=== PATIENT | female | born 1980 | race Caucasian/White ===

== ENCOUNTER 2017-01-23 21:20 | Emergency (ER) | payer MEDICAID ==
[2017-01-23] MEDS ORDERED: CLINDAMYCIN 600MG/4ML VIAL 600 MG in 0.9 % SODIUM CHLORIDE 100ML 100 ML IV ONE (21:58)
[2017-01-23] MEDS ORDERED: METHYLPREDNISOLONE PF 125MG/VIAL IVP ONE (21:58)
[2017-01-23] MEDS ORDERED: KETOROLAC 30 MG/ML VIAL IVP ONE (21:58)
--- NOTE | 2017-01-23 22:03 | Emergency Department Record ---
History of Present Illness - General Chief complaint: Facial Swelling Stated complaint: RT FACE SWELLING Time Seen by Provider: 01/23/17 21:57 Source: Patient Mode of Arrival: Ambulatory Limitations: No limitations - History of Present Illness Initial Comments: 36 yo female presents to ED with a CC of right lower lip swelling after " popping a pimple" on the lip earlier today. Patient reports similar symptoms 1 month ago resulting from a facial pimple, resulted in "MRSA" requiring admission for cellulitis. Patient denies fevers, chills, or recent illness symptoms. Patient denies history of DM or health problems at her baseline, patient denies ELSA-I medication use or throat swelling/difficulty in breathing symptoms. Patient reports that Clindamycin was ineffective for treating her MRSA infection previously, however Keflex improved her symptoms. MD Complaint: Facial swelling Onset/Timin -: Days(s) Exposure: Other Symptoms: Facial swelling, Lip swelling Severity: Moderate Previous Allergy History: None - Related Data Previous Rx's Medication Instructions Recorded Cephalexin [Keflex] 500 mg PO QID #38 cap 01/23/17 Prednisone [Prednisone 20Mg] 20 mg PO BID #10 tab 01/23/17 Allergies Allergy/AdvReac Type Severity Reaction Status Date / Time No Known Drug Allergies Allergy Unverified 10/01/16 09:50 Travel Screening - Travel/Exposure Within Last 30 Days Have you traveled within the last 30 days?: No - Travel Symptoms Symptom Screening: None Review of Systems Constitutional: Denies: Chills, Fever, Malaise, Night sweats Eyes: Denies: Eye discharge, Eye pain ENT: Reports: Other (lip swelling). Denies: Congestion, Ear pain, Epistaxis Respiratory: Denies: Cough, Dyspnea Cardiovascular: Denies: Chest pain, Dyspnea on exertion Endocrine: Denies: Fatigue, Heat or cold intolerance Gastrointestinal: Denies: Abdominal pain, Nausea, Vomiting Genitourinary: Denies: Incontinence, Retention Musculoskeletal: Denies: Arthralgia, Back pain, Gout, Joint swelling Skin: Denies: Bruising Neurological: Denies: Abnormal gait, Confusion, Headache, Seizure Psychiatric: Denies: Anxiety Hematological/Lymphatic: Denies: Anemia, Blood Clots Past Medical History - SOCIAL HISTORY Smoking Status: Heavy tobacco smoker (>10/day) Alcohol Use: Rare Drug Use: None - RESPIRATORY Hx Respiratory Disorders: No - CARDIOVASCULAR Hx Cardio Disorders: No - NEURO Hx Neuro Disorders: No - GI Hx GI Disorders: No - Hx Genitourinary Disorders: No - ENDOCRINE Hx Endocrine Disorders: No - MUSCULOSKELETAL Hx Musculoskeletal Disorders: No - PSYCH Hx Psych Problems: No - HEMATOLOGY/ONCOLOGY Hx Hematology/Oncology Disorders: Yes Hx Anemia: Yes (Had hysterectomy due to bleeding) Family Medical History Any Significant Family History?: Yes Hx HTN: Father Physical Exam - General General Appearance: Alert, Oriented x3, Cooperative, Mild distress, Anxious Limitations: No limitations - Head Head exam: Atraumatic, Normocephalic, Normal inspection Head exam detail: negative: Abrasion, Contusion, Watson's sign, General tenderness, Hematoma, Laceration - Eye Eye exam: Normal appearance. negative: Conjunctival injection, Periorbital swelling, Periorbital tenderness, Scleral icterus - ENT Ear exam: negative: Auricular hematoma, Auricular trauma Nasal Exam: negative: Active bleeding, Discharge, Dried blood, Foreign body Mouth exam: Other (induration and STS to the right upper lip). negative: Drooling, Laceration, Muffled voice, Tongue elevation Teeth exam: Dental caries - Neck Neck exam: Normal inspection. negative: Meningismus, Tenderness - Respiratory Respiratory exam: Normal lung sounds bilaterally. negative: Rales, Respiratory distress, Rhonchi, Stridor - Cardiovascular Cardiovascular Exam: Regular rate, Normal rhythm, Normal heart sounds - GI/Abdominal GI/Abdominal exam: Soft. negative: Rebound, Rigid, Tenderness - Rectal Rectal exam: Deferred - exam: Deferred - Extremities Extremities exam: Normal inspection. negative: Calf tenderness, Pedal edema, Tenderness - Back Back exam: Denies: CVA tenderness (R), CVA tenderness (L) - Neurological Neurological exam: Alert, Normal gait, Oriented X3 - Psychiatric Psychiatric exam: Normal affect, Normal mood - Skin Skin exam: Normal color. negative: Abrasion Type of lesion: negative: abrasion Course Vital Signs 01/23/17 21:35 Temperature 97.5 F L Pulse Rate [ 77 Pulse Ox Probe] Respiratory 24 Rate Blood Pressure 120/81 [Left Arm] Pulse Ox 100 - Reevaluation(s) Reevaluation #1: 01/23/17 22:41 Labs reviewed and are grossly unremarkable for an acute process. Reevaluation #2: 01/23/17 22:52 Antibiotics have completed infusion, and the patient appears stable for discharge home with instructions to return to ED in 12-24 hours for re- examination of her facial swelling, sooner if symptoms worsen. Medical Decision Making - Lab Data Result diagrams: 01/23/17 22:10 01/23/17 22:10 Disposition Disposition: Discharge Clinical Impression: Cellulitis of lip Disposition: Home, Self-Care Condition: (2) Stable Instructions: Cellulitis (ED) Additional Instructions: Return to ED if your symptoms worsen or if you have any concerns. Keflex as directed. Return to ED in 12-24 hours for reassessment. Prescriptions: Cephalexin [Keflex] 500 mg PO QID #38 cap Prednisone [Prednisone 20Mg] 20 mg PO BID #10 tab Forms: Patient Portal Access Time of Disposition: 22:55 Quality - Quality Measures Quality Measures: N/A - Blood Pressure Screening Blood Pressure Classification: Normal BP Reading Systolic Measurement: 112 Diastolic Measurement: 65 Screening for High Blood Pressure: < Normal BP, F/U Not Required > [G8783] Normal BP Follow-up Interventions: No follow-up required
[2017-01-23 22:28] LABS: BASO % 0.6 % (0-6); EOS % 7.2 % (0-6); GRAN % 59.5 % (47-80); LYMPH % 25.3 % (16-45); MEAN CELL VOLUME 82.6 fl (81-97); MEAN CORPUSCULAR HEMOGLOBIN 27.5 pg (27-33); MEAN CORPUSCULAR HGB CONC 33.3 g/dl (32-36); MEAN PLATELET VOLUME 10.5 fl (7.4-10.4); MONO % 7.4 % (0-9); PLATELET COUNT 253 K/uL (130-400); RED BLOOD COUNT 4.72 M/uL (3.80-5.40); RED CELL DISTRIBUTION WIDTH 15.2 % (11.5-14.5)
[2017-01-23 22:38] LABS: ALB/GLOB RATIO 1.3 (1.1-1.8); ALBUMIN 4.5 gm/dL (3.5-5.0); ALKALINE PHOSPHATASE 81 U/L (38-126); ALT/SGPT 33 U/L (9-52); ANION GAP 9.7 (7-16); AST/SGOT 32 U/L (14-36); BILIRUBIN,TOTAL 0.66 mg/dL (0.2-1.3); BLOOD UREA NITROGEN 12 mg/dL (7-17); CARBON DIOXIDE 24.3 mmol/L (22-30); CREATININE 0.9 mg/dL (0.52-1.04); EST GLOMERULAR FILTRATION RATE > 60 ml/min; GLUCOSE,RANDOM 79 mg/dL (70-110); TOTAL PROTEIN 8.1 gm/dL (6.3-8.2)
[2017-01-23] MEDS ORDERED: CEPHALEXIN 500 MG CAPSULE PO STA (22:54)
== END 2017-01-23 23:27 | disposition home or self-care (01) ==
LOC: ER 21:20
DX: K13.0 Diseases of lips (principal)
CPT/HCPCS: 99284 ×2; 96365; 96375; 85025; 80053; J1885; J2930

== ENCOUNTER 2017-01-24 13:18 | Emergency (ER) | payer MEDICAID ==
[2017-01-24] MEDS ORDERED: CLINDAMYCIN 600MG/4ML VIAL 600 MG in 0.9 % SODIUM CHLORIDE 100ML 100 ML IV ONE (14:18)
[2017-01-24] MEDS ORDERED: HYDROCODONE/APAP 5/325MG TABLET PO ONE (14:19)
[2017-01-24] MEDS ORDERED: HYDROMORPHONE HCL 1MG/ML **SYRINGE IVP ONE (15:18)
[2017-01-24] MEDS ORDERED: PROMETHAZINE HCL 25 MG/ML VIAL IVP ONE (15:18)
--- NOTE | 2017-01-24 15:23 | Emergency Department Record ---
History of Present Illness - General Chief Complaint: Recheck - Other Stated Complaint: LIP SWELLING Time Seen by Provider: 01/24/17 14:19 Source: Patient Mode of arrival: Ambulatory Limitations: No limitations - History of Present Illness Initial Comments: pt here for recheck of infection of her lip. pt has a hx of mrsa and states she squeezed a bump and this is the same.pt had a dose of iv clindamycin and is on keflex since last night. her SO informs me that the toradol did nothing for her pain. pt states she is no better. Complaint: Needs IV antibiotics Onset/Timin -: Days(s) Initial Visit For: Cellulitis Returns Today for: Cellulitis follow-up Symptoms Since Prior Visit: Worsening swelling Associated Symptoms: Other Treatments Prior to Arrival: Given antibiotics on initial visit - Related Data Previous Rx's Medication Instructions Recorded Cephalexin [Keflex] 500 mg PO QID #38 cap 01/23/17 Prednisone [Prednisone 20Mg] 20 mg PO BID #10 tab 01/23/17 Hydrocodone/Acetaminophen [[place] 1 each PO Q6HR #7 tablet 01/24/17 5-325 Tablet] Allergies Allergy/AdvReac Type Severity Reaction Status Date / Time No Known Drug Allergies Allergy Verified 01/24/17 13:31 Travel Screening - Travel/Exposure Within Last 30 Days Have you traveled within the last 30 days?: No - Travel/Exposure Within Last Year Have you traveled outside the [place] in the last year?: No - Additonal Travel Details Have you been exposed to anyone with a communicable illness?: No - Travel Symptoms Symptom Screening: None Review of Systems Reviewed: No additional complaints except as noted below Constitutional: Reports: As per HPI. Denies: Chills, Fever, Malaise, Night sweats, Weakness, Weight change Eyes: Reports: As per HPI. Denies: Eye discharge, Eye pain, Photophobia, Vision change ENT: Reports: As per HPI. Denies: Congestion, Dental pain, Ear pain, Epistaxis , Hearing loss, Throat pain Respiratory: Reports: As per HPI. Denies: Cough, Dyspnea, Hemoptysis, Stridor, Wheezes Cardiovascular: Reports: As per HPI. Denies: Arrhythmia, Chest pain, Dyspnea on exertion, Edema, Murmurs, Orthopnea, Palpitations, Paroxysmal nocturnal dyspnea, Rheumatic Fever, Syncope Endocrine: Reports: As per HPI. Denies: Fatigue, Heat or cold intolerance, Polydipsia, Polyuria Gastrointestinal: Reports: As per HPI. Denies: Abdominal pain, Constipation, Diarrhea, Hematemesis, Hematochezia, Melena, Nausea, Vomiting Genitourinary: Reports: As per HPI. Denies: Abnormal menses, Discharge, Dyspareunia, Dysuria, Frequency, Hematuria, Incontinence, Retention, Urgency Musculoskeletal: Reports: As per HPI. Denies: Arthralgia, Back pain, Gout, Joint swelling, Myalgia, Neck pain Skin: Reports: As per HPI. Denies: Bruising, Change in color, Change in hair/ nails, Lesions, Pruritus, Rash Neurological: Reports: As per HPI. Denies: Abnormal gait, Confusion, Headache, Numbness, Paresthesias, Seizure, Tingling, Tremors, Vertigo, Weakness Psychiatric: Reports: As per HPI. Denies: Anxiety, Auditory hallucinations, Depression, Homicidal thoughts, Suicidal thoughts, Visual hallucinations Hematological/Lymphatic: Reports: As per HPI. Denies: Anemia, Blood Clots, Easy bleeding, Easy bruising, Swollen glands Past Medical History - SOCIAL HISTORY Smoking Status: Heavy tobacco smoker (>10/day) Alcohol Use: Rare Drug Use: None - RESPIRATORY Hx Respiratory Disorders: No - CARDIOVASCULAR Hx Cardio Disorders: No - NEURO Hx Neuro Disorders: No - GI Hx GI Disorders: No - Hx Genitourinary Disorders: No - ENDOCRINE Hx Endocrine Disorders: No - MUSCULOSKELETAL Hx Musculoskeletal Disorders: No - PSYCH Hx Psych Problems: No - HEMATOLOGY/ONCOLOGY Hx Hematology/Oncology Disorders: Yes Hx Anemia: Yes (Had hysterectomy due to bleeding) Family Medical History Any Significant Family History?: Yes Hx HTN: Father Physical Exam - General General Appearance: Alert, Oriented x3, Cooperative, Mild distress - Head Head exam: Normal inspection - Eye Eye exam: Normal appearance, PERRL, EOMI Pupils: Normal accommodation - ENT ENT exam: Normal exam, Mucous membranes moist, Normal external ear exam, Normal orophraynx Ear exam: Normal external inspection. negative: External canal tenderness Nasal Exam: Normal inspection. negative: Discharge, Sinus tenderness Mouth exam: Normal external inspection, Tongue normal, Other (mild swelling pof r upper lip w mild erythema) Teeth exam: Normal inspection. negative: Dental caries Throat exam: Normal inspection. negative: Tonsillar erythema, Tonsillar exudate - Neck Neck exam: Normal inspection, Full ROM. negative: Tenderness - Respiratory Respiratory exam: Normal lung sounds bilaterally. negative: Respiratory distress - Cardiovascular Cardiovascular Exam: Regular rate, Normal rhythm, Normal heart sounds - GI/Abdominal GI/Abdominal exam: Soft, Normal bowel sounds. negative: Tenderness - Rectal Rectal exam: Deferred - exam: Deferred - Extremities Extremities exam: Normal inspection, Full ROM, Normal capillary refill. negative: Tenderness - Back Back exam: Reports: Normal inspection, Full ROM. Denies: Muscle spasm, Rash noted, Tenderness - Neurological Neurological exam: Alert, CN II-XII intact, Normal gait, Oriented X3 - Psychiatric Psychiatric exam: Normal affect, Normal mood - Skin Skin exam: Dry, Intact, Normal color, Warm Course Vital Signs 01/24/17 13:32 Temperature 97.5 F L Pulse Rate 77 Respiratory 20 Rate Blood Pressure 119/65 Pulse Ox 99 - Reevaluation(s) Reevaluation #1: 01/24/17 15:25 pt has erythema and mild swelling of lip which appears to be tender. i did consider the possibility of herpes simplex outbreak however with the pts reported hx of mrsa and stating this was just like it and the fact that there are no vesicles at this time this most likely is cellulitis Disposition Disposition: Discharge Clinical Impression: Cellulitis of lip Disposition: Home, Self-Care Condition: (1) Good Instructions: Cellulitis (ED) Additional Instructions: recheck in 12-24hrs. continue keflex. sleep elevated Prescriptions: Hydrocodone/Acetaminophen [Morrow 5-325 Tablet] 1 each PO Q6HR #7 tablet Forms: Patient Portal Access Quality - Quality Measures Quality Measures: N/A - Blood Pressure Screening Blood Pressure Classification: Normal BP Reading Systolic Measurement: 119 Diastolic Measurement: 65 Screening for High Blood Pressure: < Normal BP, F/U Not Required > [G8783] Normal BP Follow-up Interventions: No follow-up required
== END 2017-01-24 16:10 | disposition home or self-care (01) ==
LOC: ER 13:18
DX: K13.0 Diseases of lips (principal); F17.210 Nicotine dependence, cigarettes, uncomplicated; Z86.14 Personal history of Methicillin resistant Staphylococcus aureus infection
CPT/HCPCS: 99282 ×2; 96365; 96375; J1170; J2550

== ENCOUNTER 2017-01-25 11:55 | Inpatient (IN) | payer MEDICAID ==
--- NOTE | 2017-01-25 12:12 | Emergency Department Record ---
History of Present Illness - General Chief Complaint: Recheck - Other Stated Complaint: SWOLLEN LIP Time Seen by Provider: 01/25/17 12:02 Source: Patient, Family Mode of arrival: Ambulatory Limitations: No limitations - History of Present Illness Initial Comments: 36 yo female presents with continued lip pain and swelling. the symptoms started as a pimple like area that she tried to pop. The lower lip began to swell at that time. She was seen in the ER on 01/23 and 01/24. She was treated with IV antibiotic and sent home on oral antibiotics. She reports prior MRSA with facial infection in the past. The swelling the the right lip and face have increased. PCP Dr Richards. Complaint: Wound re-check Onset/Timin -: Days(s) Initial Visit For: Other Returns Today for: Needs IV antibiotics Symptoms Since Prior Visit: Worsening pain, Worsening swelling Associated Symptoms: None Treatments Prior to Arrival: Given antibiotics on initial visit, Given pain medications on initial visit - Related Data Home Medications Medication Instructions Recorded Confirmed Last Taken Hydroxyzine Pamoate [Vistaril] 25 mg PO ASDIR 01/25/17 01/25/17 Unknown Previous Rx's Medication Instructions Recorded Cephalexin [Keflex] 500 mg PO QID #38 cap 01/23/17 Prednisone [Prednisone 20Mg] 20 mg PO BID #10 tab 01/23/17 Hydrocodone/Acetaminophen [[place] 1 each PO Q6HR #7 tablet 01/24/17 5-325 Tablet] Allergies Allergy/AdvReac Type Severity Reaction Status Date / Time No Known Drug Allergies Allergy Verified 01/24/17 13:31 Travel Screening - Travel/Exposure Within Last 30 Days Have you traveled within the last 30 days?: No Past Medical History - SOCIAL HISTORY Smoking Status: Heavy tobacco smoker (>10/day) - RESPIRATORY Hx Respiratory Disorders: No - CARDIOVASCULAR Hx Cardio Disorders: No - NEURO Hx Neuro Disorders: No - GI Hx GI Disorders: No - Hx Genitourinary Disorders: No - ENDOCRINE Hx Endocrine Disorders: No - MUSCULOSKELETAL Hx Musculoskeletal Disorders: No - PSYCH Hx Psych Problems: No - HEMATOLOGY/ONCOLOGY Hx Hematology/Oncology Disorders: Yes Hx Anemia: Yes (Had hysterectomy due to bleeding) Family Medical History Any Significant Family History?: Yes Hx HTN: Father Course Vital Signs 01/25/17 11:59 Temperature 98.1 F Pulse Rate 69 Respiratory 20 Rate Blood Pressure 126/78 Pulse Ox 100 - Reevaluation(s) Reevaluation #1: No acute changes on the CBC or CMP. CRP is 0.6. 01/25/17 13:02 Reevaluation #2: The CT scan of the face was negative for abscess, gas, or bone abnormalities. She has soft tissue swelling CW cellulitis. I SW Dr Richards. She will be admitted for failed outpatient treatment of cellulitis of the face. 01/25/17 13:20 Medical Decision Making - Lab Data Result diagrams: 01/25/17 12:35 01/25/17 12:35 Disposition Disposition: Admit Clinical Impression: Cellulitis of lip Disposition: Still a Patient at [facility] Decision to Admit: Admit from ER Decision to Admit Date: 01/25/17 Decision to Admit Time: 13:21 Condition: (1) Good Forms: Patient Portal Access Time of Disposition: 13:21 Quality - Quality Measures Quality Measures: N/A - Blood Pressure Screening View Details: Yes Blood Pressure Classification: Pre-Hypertensive BP Reading Systolic Measurement: 126 Diastolic Measurement: 78 Screening for High Blood Pressure: < Pre-Hypertensive BP, F/U Documented > [ G8950] Pre-Hypertensive Follow-up Interventions: Referral to alternative/primary care provider.
[2017-01-25] MEDS ORDERED: HYDROMORPHONE HCL 1MG/ML **SYRINGE IVP ONE ×2 (12:34→14:24)
[2017-01-25 12:43] LABS: BASO % 0.3 % (0-6); EOS % 2.1 % (0-6); GRAN % 61.1 % (47-80); HEMATOCRIT 37.7 % (35.0-47.0); HEMOGLOBIN 12.4 gm/dl (11.6-16.0); LYMPH % 27.9 % (16-45); MEAN CELL VOLUME 84.3 fl (81-97); MEAN CORPUSCULAR HEMOGLOBIN 27.7 pg (27-33); MEAN CORPUSCULAR HGB CONC 32.9 g/dl (32-36); MEAN PLATELET VOLUME 10.1 fl (7.4-10.4); MONO % 8.6 % (0-9); PLATELET COUNT 225 K/uL (130-400); RED BLOOD COUNT 4.47 M/uL (3.80-5.40); RED CELL DISTRIBUTION WIDTH 15.3 % (11.5-14.5); WHITE BLOOD COUNT W/O DIFF 9.9 K/uL (4.2-12.2)
[2017-01-25 12:58] LABS: ANION GAP 5.4 (7-16); BLOOD UREA NITROGEN 12 mg/dL (7-17); C-REACTIVE PROTEIN 0.6 mg/dL (0.0-0.9); CARBON DIOXIDE 26.6 mmol/L (22-30); CREATININE 0.8 mg/dL (0.52-1.04); EST GLOMERULAR FILTRATION RATE > 60 ml/min; GLUCOSE,RANDOM 69 mg/dL (70-110)
[2017-01-25] MEDS ORDERED: ACETAMINOPHEN 500 MG TABLET PO PRN (14:58)
[2017-01-25] MEDS: CLINDAMYCIN 600MG/50ML PREMIX 600 MG/50 ML BAG IVPB SCH ×2 (15:24→21:34)
[2017-01-25] MEDS: IBUPROFEN 600 MG TABLET PO PRN (16:04)
--- NOTE | 2017-01-25 16:20 | History & Physical ---
History of Present Illness - Date of Service Date of Service for History & Physical: 01/25/17 - History of Present Illness Admitting Diagnosis: facial cellulitis History of Present Illness: 36 yo female presents with continued lip pain and swelling of face. The symptoms started as a pimple on Wednesday. Within 2 hours the area was red and inflamed. The lower lip began to swell at that time. She was seen in the ER on 01/23 and 01/24. She was treated with IV antibiotic (IV Clindamycin) and sent home on oral antibiotics (Clindamycin and Keflex). 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 The swelling the the right lip and face have increased since she started her outpatient antibiotics. She was admitted after CT of face did not show an abscess. PCP Dr Richards. Travel Screening - Travel/Exposure Within Last 30 Days Have you traveled within the last 30 days?: No - Travel/Exposure Within Last Year Have you traveled outside the [place] in the last year?: No - Additonal Travel Details Have you been exposed to anyone with a communicable illness?: No - Travel Symptoms Symptom Screening: Headache Review of Systems Reviewed: No additional complaints except as noted below Constitutional: Reports: As per HPI. Denies: Chills, Fever, Malaise, Night sweats, Weakness, Weight change Eyes: Reports: As per HPI. Denies: Eye discharge, Eye pain, Photophobia, Vision change ENT: Reports: As per HPI. Denies: Congestion, Dental pain, Ear pain, Epistaxis , Hearing loss, Throat pain Respiratory: Reports: As per HPI. Denies: Cough, Dyspnea, Hemoptysis, Stridor, Wheezes Cardiovascular: Reports: As per HPI. Denies: Arrhythmia, Chest pain, Dyspnea on exertion, Edema, Murmurs, Orthopnea, Palpitations, Paroxysmal nocturnal dyspnea, Rheumatic Fever, Syncope Endocrine: Reports: As per HPI. Denies: Fatigue, Heat or cold intolerance, Polydipsia, Polyuria Gastrointestinal: Reports: As per HPI. Denies: Abdominal pain, Constipation, Diarrhea, Hematemesis, Hematochezia, Melena, Nausea, Vomiting Genitourinary: Reports: As per HPI. Denies: Abnormal menses, Discharge, Dyspareunia, Dysuria, Frequency, Hematuria, Incontinence, Retention, Urgency Musculoskeletal: Reports: As per HPI. Denies: Arthralgia, Back pain, Gout, Joint swelling, Myalgia, Neck pain Skin: Reports: As per HPI, Change in color, Lesions (above right lip, small ulceration with puffed lip). Denies: Bruising, Change in hair/nails, Pruritus, Rash Neurological: Reports: As per HPI. Denies: Abnormal gait, Confusion, Headache, Numbness, Paresthesias, Seizure, Tingling, Tremors, Vertigo, Weakness Psychiatric: Reports: As per HPI. Denies: Anxiety, Auditory hallucinations, Depression, Homicidal thoughts, Suicidal thoughts, Visual hallucinations Hematological/Lymphatic: Reports: As per HPI. Denies: Anemia, Blood Clots, Easy bleeding, Easy bruising, Swollen glands Past Medical History - SOCIAL HISTORY Smoking Status: Heavy tobacco smoker (>10/day) Alcohol Use: Occasional - RESPIRATORY Hx Respiratory Disorders: No - CARDIOVASCULAR Hx Cardio Disorders: No - NEURO Hx Neuro Disorders: No - GI Hx GI Disorders: No - Hx Genitourinary Disorders: No - ENDOCRINE Hx Endocrine Disorders: No - MUSCULOSKELETAL Hx Musculoskeletal Disorders: No - PSYCH Hx Psych Problems: No - HEMATOLOGY/ONCOLOGY Hx Hematology/Oncology Disorders: Yes Hx Anemia: Yes (Had hysterectomy due to bleeding) Family Medical History Any Significant Family History?: Yes Hx HTN: Father H&P Meds/Allergies - Allergies Allergies: Allergies Allergy/AdvReac Type Severity Reaction Status Date / Time No Known Drug Allergies Allergy Verified 01/24/17 13:31 - Home Medications Home Medications Medication Instructions Recorded Confirmed Last Taken Hydroxyzine Pamoate [Vistaril] 25 mg PO ASDIR 01/25/17 01/25/17 Unknown Previous Rx's Medication Instructions Recorded Cephalexin [Keflex] 500 mg PO QID #38 cap 01/23/17 Prednisone [Prednisone 20Mg] 20 mg PO BID #10 tab 01/23/17 Hydrocodone/Acetaminophen [[place] 1 each PO Q6HR #7 tablet 01/24/17 5-325 Tablet] - Active Medications Active Medications: Current Medications Acetaminophen (Tylenol 500mg Tab) 1,000 mg PO Q6H PRN PRN Reason: PAIN/TEMP Enoxaparin Sodium (Lovenox) 40 mg SC DAILY [facility] Hydromorphone HCl (Dilaudid) 0.5 mg IVP Q4HR PRN PRN Reason: Pain - General Clindamycin Phosphate (Cleocin 600 [id number]) 600 mg in 50 mls @ 100 mls/ hr IVPB Q8HR [facility] Last Admin: 01/25/17 15:24 Dose: 100 mls/hr Ibuprofen (Motrin 600mg) 600 mg PO Q8H PRN PRN Reason: Pain - General Last Admin: 01/25/17 16:04 Dose: 600 mg Pantoprazole Sodium (Protonix) 40 mg PO DAILYAC [facility] Sertraline HCl (Zoloft) 50 mg PO DAILY [facility] Physical Exam - Vital Signs Vital Signs: Vital Signs - Last 24 Hrs Temp Pulse Resp BP Pulse Ox 01/25/17 15:43 62 18 01/25/17 14:58 97.8 F 62 18 115/72 99 - General General Appearance: Alert, Oriented x3, Cooperative, No acute distress Limitations: No limitations - Head Head exam: Normal inspection Head exam detail: negative: Abrasion, Contusion - Eye Eye exam: Normal appearance, PERRL Pupils: Normal accommodation - ENT ENT exam: Normal exam, Mucous membranes moist, Normal external ear exam, Normal orophraynx, TM's normal bilaterally Ear exam: Normal external inspection. negative: External canal tenderness Nasal Exam: Normal inspection. negative: Discharge, Sinus tenderness Mouth exam: Normal external inspection, Tongue normal Teeth exam: Normal inspection. negative: Dental caries Throat exam: Normal inspection. negative: Tonsillar erythema, Tonsillar exudate - Neck Neck exam: Normal inspection, Full ROM. negative: Tenderness - Respiratory Respiratory exam: Normal lung sounds bilaterally. negative: Respiratory distress - Cardiovascular Cardiovascular Exam: Regular rate, Normal rhythm, Normal heart sounds - GI/Abdominal GI/Abdominal exam: Soft, Normal bowel sounds. negative: Tenderness - Rectal Rectal exam: Deferred - exam: Deferred - Extremities Extremities exam: Normal inspection, Full ROM, Normal capillary refill. negative: Tenderness - Back Back exam: Reports: Normal inspection, Full ROM. Denies: Muscle spasm, Rash noted, Tenderness - Neurological Neurological exam: Alert, Normal gait, Oriented X3, Reflexes normal - Psychiatric Psychiatric exam: Normal affect, Normal mood - Skin Skin exam: Dry, Erythema (borders drawn over area of eryathema), Intact, Normal color, Rash, Warm Type of lesion: Laceration, Rash Distribution of rash: Face Description of rash: Blisters, Erythematous, Swelling, Tenderness Results - Labs Result Diagrams: 01/25/17 12:35 01/25/17 12:35 VTE H&P Assessment - Risk for VTE Risk for VTE: Yes Risk Level: Moderate Risk Assessment Date: 01/25/17 Risk Assessment Time: 23:17 VTE Orders Placed or Will Be Placed: Yes Plan - Inpatient Certification Inpatient Certification: Admit to inpatient care: Based on my medical assessment, after consideration of patient's risk factors (age, co-morbidities and patient presenting symptoms and acuity), I expect that this patient will remain in the hospital greater than or equal to two midnights and that the services needed warrant inpatient care because: Patient Risk Factors: [] Estimated length of stay: [] The patient may reasonably be expected to be discharged or transferred to a hospital within 96 hours after admission to [facility]. Services needed: [] Post hospital care (if known): [] I certify that my determination is in accordance with my understanding of Medicare requirements for reasonable and necessary inpatient services. - Detailed Diagnosis and Plan (1) Cellulitis of lip Current Visit: Yes Status: Acute Base Code: K13.0 - DISEASES OF LIPS Comment: 01/25- will trial one more day of IV clindamycin since failed outpatient oral treatment. Requested nurse to get records from [facility] for previous cultures and sensitives to MRSA. If no improvement tomorrow, will need to intiate vancomycin for broader MRSA coverage. (2) Cellulitis, face Current Visit: Yes Status: Acute Base Code: L03.211 - CELLULITIS OF FACE Comment: 01/25 - initated iv clindamycin as noted above. For pain, will add norco 10mg. Lucio borders on face of current site of infection. Good range of motion to extra occular muscles (3) DVT prophylaxis Current Visit: Yes Status: Acute Base Code: [id number] - Comment: 01/25 - lovenox 40mg daily (4) Full code status Current Visit: Yes Status: Acute Base Code: Z78.9 - OTHER SPECIFIED HEALTH STATUS Comment: 01/25- full code
[2017-01-25] MEDS: HYDROCODONE/APAP 5/325MG TABLET PO PRN ×2 (16:45→17:16)
[2017-01-25] MEDS: HYDROMORPHONE HCL 1 MG/ML CPJ IVP PRN (19:22)
[2017-01-25] MEDS: ZOLPIDEM TARTRATE 5 MG TABLET PO SCH (21:33)
[2017-01-25] MEDS: HYDROXYZINE PAMOATE 25 MG CAPSULE PO PRN (21:33)
[2017-01-25] MEDS: SERTRALINE HCL 50 MG TABLET PO SCH (21:34)
[2017-01-25] MEDS: PANTOPRAZOLE SODIUM 40 MG TABLET PO SCH (21:52)
[2017-01-26] MEDS: HYDROCODONE/APAP 10/325 TABLET PO PRN ×4 (03:36→20:47)
[2017-01-26] MEDS: CLINDAMYCIN 600MG/50ML PREMIX 600 MG/50 ML BAG IVPB SCH (05:49)
[2017-01-26] MEDS: HYDROMORPHONE HCL 1 MG/ML CPJ IVP PRN ×4 (06:58→19:49)
--- NOTE | 2017-01-26 07:40 | CT SCAN REPORT ---
EXAM: MAXILLOFACIAL CT WITH IV CONTRAST HISTORY: RIGHT PERIORBITAL AND MANDIBULAR SWELLING WITH PAIN. THREE DAYS INTERMITTENT EPISODES OF METHICILLIN RESISTANT STREPTOCOCCUS AUREUS OF THE LIP ONE MONTH AGO WITH ANTIBIOTIC THERAPY AND SOME IMPROVEMENT. TECHNIQUE: Contiguous axial images from the level of the mid lateral ventricles to the C6 level were obtained after the uneventful intravenous administration of 95 ml of Omnipaque 300. Sagittal and coronal two dimensional reformatted images were obtained for better anatomic delineation. Comparison: None. FINDINGS: There is thickening and contrast enhancement of the upper right lip extending from the midline to the right measuring up to 1.3 cm in AP dimension x 4.2 cm in mediolateral dimension. The finding measures 1.1 cm in craniocaudal dimension. No discreet fluid collection or soft tissue gas. The adjacent mandible is preserved without osteolysis or periosteal reaction. No periodontal disease. Minimal mucosal thickening right maxillary sinus. The remaining paranasal sinuses are well aerated. The visualized nasopharynx, oropharynx, and hypopharynx are unremarkable. The laryngeal structures are symmetric. Vascular structures are patent. No fracture. IMPRESSION: EXTENSIVE SOFT TISSUE SWELLING AND ENHANCEMENT OF THE RIGHT UPPER LIP EXTENDING TO THE MIDLINE CONSISTENT WITH CELLULITIS. NO DISCREET ABSCESS, SOFT TISSUE GAS , OR EVIDENCE OF OSTEOMYELITIS. JOB NUMBER: [id number] [facility]
[2017-01-26] MEDS: VANCOMYCIN HCL 750 MG in 0.9 % SODIUM CHLORIDE 250ML 250 ML IVPB SCH ×2 (09:14→18:32)
--- NOTE | 2017-01-26 09:47 | Physician Progress Note ---
Subjective - Date Date of Physician Progress Note: 01/26/17 - Subjective Subjective Comment: pt uncomfortable due to pain increased right upper lip swelling erythema within drawn lines patient tolerating po intake, however painful. afebrile. no diaphoresis. Objective - Vital Signs Vital Signs: Vital Signs - Last 24 Hrs Temp Pulse Resp BP Pulse Ox 01/26/17 03:42 97.9 F 60 16 105/68 96 01/25/17 21:00 18 01/25/17 15:43 62 18 01/25/17 14:58 97.8 F 62 18 115/72 99 - General General Appearance: Alert, Oriented x3, Cooperative, No acute distress Limitations: No limitations - Head Head exam: Normal inspection Head exam detail: negative: Abrasion, Contusion - Eye Eye exam: Normal appearance, PERRL Pupils: Normal accommodation - ENT ENT exam: Normal exam, Mucous membranes moist, Normal external ear exam, Normal orophraynx, TM's normal bilaterally Ear exam: Normal external inspection. negative: External canal tenderness Nasal Exam: Normal inspection. negative: Discharge, Sinus tenderness Mouth exam: Normal external inspection, Tongue normal Teeth exam: Normal inspection. negative: Dental caries Throat exam: Normal inspection. negative: Tonsillar erythema, Tonsillar exudate - Neck Neck exam: Normal inspection, Full ROM. negative: Tenderness - Respiratory Respiratory exam: Normal lung sounds bilaterally. negative: Respiratory distress - Cardiovascular Cardiovascular Exam: Regular rate, Normal rhythm, Normal heart sounds - GI/Abdominal GI/Abdominal exam: Soft, Normal bowel sounds. negative: Tenderness - Rectal Rectal exam: Deferred - exam: Deferred - Extremities Extremities exam: Normal inspection, Full ROM, Normal capillary refill. negative: Tenderness - Back Back exam: Reports: Normal inspection, Full ROM. Denies: Muscle spasm, Rash noted, Tenderness - Neurological Neurological exam: Alert, Normal gait, Oriented X3, Reflexes normal - Psychiatric Psychiatric exam: Normal affect, Normal mood - Skin Skin exam: Dry, Erythema (borders drawn over area of erythema), Intact, Rash, Warm Type of lesion: Laceration, Rash Distribution of rash: Face Description of rash: Blisters, Erythematous, Swelling, Tenderness Assessment and Plan - Assessment and Plan (1) Cellulitis, face Current Visit: Yes Status: Acute Base Code: L03.211 - CELLULITIS OF FACE Comment: 01/26 - dc clindamycin and start vanco. obtain records from previous cellulitis stay at [facility]. For pain, will add norco 10mg q6 and 0.5 IV Dilaudid q 4 prn. Tylenol or motrin as needed. borders on face to outline current site of infection. No spreading. CT of face: negative for abscess. WBC normal. Extra occular muscles normal. Tolerating PO intake. Will initiate 40 mg of IV Solu-medrol BID and Benadryl for swelling. (2) DVT prophylaxis Current Visit: Yes Status: Acute Base Code: [id number] - Comment: 01/26 - lovenox 40mg daily (3) Full code status Current Visit: Yes Status: Acute Base Code: Z78.9 - OTHER SPECIFIED HEALTH STATUS Comment: 01/26- full code Results - Labs Result Diagrams: 01/25/17 12:35 01/25/17 12:35 DVT/PE Assessment - Risk for VTE Risk for VTE: No Risk Level: Moderate Risk Assessment Date: 01/25/17 Risk Assessment Time: 23:17 VTE Orders Placed or Will Be Placed: Yes - Active Medicaitons Current Medications: Current Medications Acetaminophen (Tylenol 500mg Tab) 1,000 mg PO Q6H PRN PRN Reason: PAIN/TEMP Hydrocodone Bitart/Acetaminophen ([place]osalie 10mg/325mg) 1 each PO Q6H PRN PRN Reason: cellulutis pain Last Admin: 01/26/17 08:37 Dose: 1 each Diphenhydramine HCl (Benadryl Iv) 25 mg IVP Q6H PRN PRN Reason: Allergy Symptoms Enoxaparin Sodium (Lovenox) 40 mg SC DAILY [facility] Enoxaparin Sodium (Lovenox) 40 mg SC DAILY [facility] Hydromorphone HCl (Dilaudid) 0.5 mg IVP Q4HR PRN PRN Reason: Pain - General Last Admin: 01/26/17 06:58 Dose: 0.5 mg Hydroxyzine Pamoate (Vistaril) 25 mg PO TID PRN PRN Reason: ANXIETY Last Admin: 01/25/17 21:33 Dose: 25 mg Vancomycin HCl 750 mg/ Sodium (Chloride) 250 mls @ 250 mls/hr IVPB Q8H [facility] Last Admin: 01/26/17 09:14 Dose: 250 mls/hr Ibuprofen (Motrin 600mg) 600 mg PO Q8H PRN PRN Reason: Pain - General Last Admin: 01/25/17 16:04 Dose: 600 mg Methylprednisolone Sodium Succinate (Solu-Medrol) 40 mg IVP BID [facility] Stop: 01/31/17 10:01 Pantoprazole Sodium (Protonix) 40 mg PO QHS [facility] Last Admin: 01/25/17 21:52 Dose: 40 mg Sertraline HCl (Zoloft) 50 mg PO QHS [facility] Last Admin: 01/25/17 21:34 Dose: 50 mg Zolpidem Tartrate (Ambien) 5 mg PO QHS [facility] Last Admin: 01/25/17 21:33 Dose: 5 mg AMI Plan - Labs Result Diagrams: 01/25/17 12:35 01/25/17 12:35
[2017-01-26] MEDS ORDERED: ENOXAPARIN 40 MG/0.4 ML SYR SC SCH (10:00)
[2017-01-26] MEDS: METHYLPREDNISOLONE SOD 40MG/VIAL IVP SCH ×2 (10:00→21:06)
[2017-01-26] MEDS: ENOXAPARIN 40 MG/0.4 ML SYR SC SCH (10:01)
[2017-01-26] MEDS: IBUPROFEN 600 MG TABLET PO PRN ×2 (10:01→18:32)
[2017-01-26] MEDS: DIPHENHYDRAMINE HCL IV 50 MG/ML VIAL IVP PRN ×2 (13:02→18:42)
[2017-01-26] MEDS ORDERED: NICOTINE14 MG/24 HOUR PATCH TD SCH (18:30)
[2017-01-26] MEDS: NICOTINE 21 MG/24 HOUR PATCH TD SCH (18:32)
[2017-01-26] MEDS: ZOLPIDEM TARTRATE 5 MG TABLET PO SCH (21:06)
[2017-01-26] MEDS: PANTOPRAZOLE SODIUM 40 MG TABLET PO SCH (21:06)
[2017-01-26] MEDS: SERTRALINE HCL 50 MG TABLET PO SCH (21:06)
[2017-01-26] MEDS: DOCUSATE SODIUM 100 MG CAPSULE PO PRN (21:28)
[2017-01-27] MEDS: VANCOMYCIN HCL 750 MG in 0.9 % SODIUM CHLORIDE 250ML 250 ML IVPB SCH ×2 (01:16→09:02)
[2017-01-27] MEDS: HYDROMORPHONE HCL 1 MG/ML CPJ IVP PRN ×3 (01:30→19:45)
[2017-01-27] MEDS: IBUPROFEN 600 MG TABLET PO PRN ×2 (01:30→12:40)
[2017-01-27] MEDS: HYDROCODONE/APAP 10/325 TABLET PO PRN ×4 (02:52→23:04)
[2017-01-27 08:57] LABS: HEMATOCRIT 38.5 % (35.0-47.0); HEMOGLOBIN 12.3 gm/dl (11.6-16.0); MEAN CELL VOLUME 84.2 fl (81-97); MEAN CORPUSCULAR HEMOGLOBIN 26.9 pg (27-33); MEAN CORPUSCULAR HGB CONC 31.9 g/dl (32-36); MEAN PLATELET VOLUME 10.5 fl (7.4-10.4); PLATELET COUNT 260 K/uL (130-400); RED BLOOD COUNT 4.57 M/uL (3.80-5.40); RED CELL DISTRIBUTION WIDTH 14.8 % (11.5-14.5); WHITE BLOOD COUNT W/O DIFF 13.2 K/uL (4.2-12.2)
[2017-01-27] MEDS: ENOXAPARIN 40 MG/0.4 ML SYR SC SCH (09:03)
[2017-01-27] MEDS: METHYLPREDNISOLONE SOD 40MG/VIAL IVP SCH ×2 (09:03→21:13)
[2017-01-27 09:05] LABS: ANION GAP 6.2 (7-16); BLOOD UREA NITROGEN 11 mg/dL (7-17); CARBON DIOXIDE 29.8 mmol/L (22-30); CREATININE 0.8 mg/dL (0.52-1.04); EST GLOMERULAR FILTRATION RATE > 60 ml/min; GLUCOSE,RANDOM 104 mg/dL (70-110)
[2017-01-27 09:11] LABS: PLATELET ESTIMATE NORMAL (NORMAL)
--- NOTE | 2017-01-27 09:16 | Physician Progress Note ---
Subjective - Date Date of Physician Progress Note: 01/27/17 - Subjective Subjective Comment: sitting up in bed comfortably tolerating breakfast- more liquids/soft pain has improved, however still quite significant patient reports difficulty initiating urine stream afebrile. denies diaphoresis. no n/v, dysphagia, or duffy. Objective - Vital Signs Vital Signs: Vital Signs - Last 24 Hrs Temp Pulse Resp BP Pulse Ox 01/27/17 02:09 97.6 F 65 18 103/66 97 01/26/17 20:38 16 01/26/17 18:01 69 109/66 01/26/17 11:00 97.9 F 79 16 103/61 - General General Appearance: Alert, Oriented x3, Cooperative, No acute distress Limitations: No limitations - Head Head exam: Normal inspection Head exam detail: negative: Abrasion, Contusion - Eye Eye exam: Normal appearance, PERRL Pupils: Normal accommodation - ENT ENT exam: Normal exam, Mucous membranes moist, Normal external ear exam, Normal orophraynx, TM's normal bilaterally Ear exam: Normal external inspection. negative: External canal tenderness Nasal Exam: Normal inspection. negative: Discharge, Sinus tenderness Mouth exam: Normal external inspection, Tongue normal Teeth exam: Normal inspection. negative: Dental caries Throat exam: Normal inspection. negative: Tonsillar erythema, Tonsillar exudate - Neck Neck exam: Normal inspection, Full ROM. negative: Tenderness - Respiratory Respiratory exam: Normal lung sounds bilaterally. negative: Respiratory distress - Cardiovascular Cardiovascular Exam: Regular rate, Normal rhythm, Normal heart sounds - GI/Abdominal GI/Abdominal exam: Soft, Normal bowel sounds. negative: Tenderness - Rectal Rectal exam: Deferred - exam: Deferred - Extremities Extremities exam: Normal inspection, Full ROM, Normal capillary refill. negative: Tenderness - Back Back exam: Reports: Normal inspection, Full ROM. Denies: Muscle spasm, Rash noted, Tenderness - Neurological Neurological exam: Alert, Normal gait, Oriented X3, Reflexes normal - Psychiatric Psychiatric exam: Normal affect, Normal mood - Skin Skin exam: Dry, Erythema (borders drawn over area of erythema, improving), Intact, Rash, Warm Type of lesion: Laceration, Rash Distribution of rash: Face Description of rash: Blisters, Erythematous, Swelling, Tenderness Assessment and Plan - Assessment and Plan (1) Cellulitis, face Current Visit: Yes Status: Acute Base Code: L03.211 - CELLULITIS OF FACE Comment: 01/27 - continue vanco - obtain previous culture results from [facility]. - pain control: norco 10mg q6 and 0.5-1mg of IV Dilaudid q 4 prn. Tylenol or motrin, in addition, as needed. - continue 40 mg of IV Solu-medrol BID and Benadryl for swelling. - borders on face to outline current site of infection. appears to be improving. - CT of face: negative for abscess. Extra occular muscles normal. - WBC 13.6. Afebrile. Monitor daily. - Tolerating PO intake. (2) DVT prophylaxis Current Visit: Yes Status: Acute Base Code: [id number] - Comment: 01/27 - lovenox 40mg daily (3) Full code status Current Visit: Yes Status: Acute Base Code: Z78.9 - OTHER SPECIFIED HEALTH STATUS Comment: 01/27- full code Results - Labs Result Diagrams: 01/27/17 08:45 01/27/17 08:45 Labs Last 24 Hours: Laboratory Results - last 24 hr 01/27/17 01/27/17 01/27/17 08:45 08:45 08:45 WBC 13.2 H RBC 4.57 Hgb 12.3 Hct 38.5 MCV 84.2 MCH 26.9 L MCHC 31.9 L RDW 14.8 H Plt Count 260 MPV 10.5 H Neutrophils % 84.0 H Eosinophils % Not Reportable Basophils % Not Reportable Lymphocytes 10.0 L Monocytes 6.0 Platelet Estimate Normal RBC Morphology Normal Sodium 140 Potassium 4.5 Chloride 104 Carbon Dioxide 29.8 Anion Gap 6.2 L BUN 11 Creatinine 0.8 Estimated GFR > 60 Random Glucose 104 Calcium 9.1 Vancomycin Trough 11.3 DVT/PE Assessment - Risk for VTE Risk for VTE: No Risk Level: Moderate Risk Assessment Date: 01/25/17 Risk Assessment Time: 23:17 VTE Orders Placed or Will Be Placed: Yes - Active Medicaitons Current Medications: Current Medications Acetaminophen (Tylenol 500mg Tab) 1,000 mg PO Q6H PRN PRN Reason: PAIN/TEMP Hydrocodone Bitart/Acetaminophen ([place] 10mg/325mg) 1 each PO Q6H PRN PRN Reason: Pain - Mild (1-4) Last Admin: 01/27/17 09:04 Dose: 1 each Diphenhydramine HCl (Benadryl Iv) 25 mg IVP Q6H PRN PRN Reason: Allergy Symptoms Last Admin: 01/26/17 18:42 Dose: 25 mg Docusate Sodium (Colace) 100 mg PO BID PRN PRN Reason: Constipation Last Admin: 01/26/17 21:28 Dose: 100 mg Enoxaparin Sodium (Lovenox) 40 mg SC DAILY [facility] Last Admin: 01/27/17 09:03 Dose: 40 mg Hydromorphone HCl (Dilaudid) 0.5 mg IVP Q4HR PRN PRN Reason: Pain - Moderate (5-7) Last Admin: 01/26/17 10:49 Dose: 0.5 mg Hydromorphone HCl (Dilaudid) 1 mg IVP Q4H PRN PRN Reason: Pain - Severe (8-10) Last Admin: 01/27/17 01:30 Dose: 1 mg Hydroxyzine Pamoate (Vistaril) 25 mg PO TID PRN PRN Reason: ANXIETY Last Admin: 01/25/17 21:33 Dose: 25 mg Vancomycin HCl 750 mg/ Sodium (Chloride) 250 mls @ 250 mls/hr IVPB Q8H [facility] Last Admin: 01/27/17 09:02 Dose: 250 mls/hr Ibuprofen (Motrin 600mg) 600 mg PO Q8H PRN PRN Reason: Pain - General Last Admin: 01/27/17 01:30 Dose: 600 mg Methylprednisolone Sodium Succinate (Solu-Medrol) 40 mg IVP BID [facility] Stop: 01/31/17 10:01 Last Admin: 01/27/17 09:03 Dose: 40 mg Miscellaneous (Remove Patch) 1 each TD Q24H [facility] Nicotine (Nicotine 21mg) 1 patch TD Q24H [facility] Last Admin: 01/26/17 18:32 Dose: 1 patch Pantoprazole Sodium (Protonix) 40 mg PO QHS [facility] Last Admin: 01/26/17 21:06 Dose: 40 mg Sertraline HCl (Zoloft) 50 mg PO QHS [facility] Last Admin: 01/26/17 21:06 Dose: 50 mg Zolpidem Tartrate (Ambien) 5 mg PO QHS [facility] Last Admin: 01/26/17 21:06 Dose: 5 mg AMI Plan - Labs Result Diagrams: 01/27/17 08:45 01/27/17 08:45
[2017-01-27 11:41] LABS: URINE APPEARANCE CLEAR; URINE BILIRUBIN NEGATIVE (NEGATIVE); URINE BLOOD NEGATIVE (NEGATIVE); URINE COLOR YELLOW; URINE GLUCOSE (UA) NEGATIVE (NEGATIVE); URINE KETONE NEGATIVE (NEGATIVE); URINE LEUKOCYTE ESTERASE TRACE (NEGATIVE); URINE NITRITE NEGATIVE (NEGATIVE); URINE PROTEIN NEGATIVE (NEGATIVE); URINE UROBILINOGEN 0.2 E.U./dL (0.20 - 1.00)
[2017-01-27 11:49] LABS: URINE BACTERIA 1+; URINE EPITHELIAL CELLS 0 - 2 (FEW); URINE RBC NONE SEEN (NONE SEEN)
[2017-01-27] MEDS: VANCOMYCIN HCL 1,000 MG in 0.9 % SODIUM CHLORIDE 250ML 250 ML IVPB SCH ×2 (15:17→23:00)
[2017-01-27] MEDS: NICOTINE 21 MG/24 HOUR PATCH TD SCH (19:58)
[2017-01-27] MEDS: REMOVE PATCH 1 EACH MISC TD SCH (19:58)
[2017-01-27] MEDS: DIPHENHYDRAMINE HCL IV 50 MG/ML VIAL IVP PRN (21:13)
[2017-01-27] MEDS: ZOLPIDEM TARTRATE 5 MG TABLET PO SCH ×2 (21:14→21:15)
[2017-01-27] MEDS: PANTOPRAZOLE SODIUM 40 MG TABLET PO SCH (21:15)
[2017-01-27] MEDS: HYDROXYZINE PAMOATE 25 MG CAPSULE PO PRN (21:23)
[2017-01-27] MEDS: SERTRALINE HCL 50 MG TABLET PO SCH (21:25)
[2017-01-28] MEDS: HYDROMORPHONE HCL 1 MG/ML CPJ IVP PRN (03:18)
[2017-01-28] MEDS: VANCOMYCIN HCL 1,000 MG in 0.9 % SODIUM CHLORIDE 250ML 250 ML IVPB SCH ×3 (06:13→23:31)
[2017-01-28 06:38] LABS: HEMATOCRIT 35.9 % (35.0-47.0); HEMOGLOBIN 11.7 gm/dl (11.6-16.0); MEAN CELL VOLUME 84.7 fl (81-97); MEAN CORPUSCULAR HEMOGLOBIN 27.6 pg (27-33); MEAN CORPUSCULAR HGB CONC 32.6 g/dl (32-36); MEAN PLATELET VOLUME 10.6 fl (7.4-10.4); PLATELET COUNT 232 K/uL (130-400); RED BLOOD COUNT 4.24 M/uL (3.80-5.40); RED CELL DISTRIBUTION WIDTH 14.9 % (11.5-14.5); WHITE BLOOD COUNT W/O DIFF 9.9 K/uL (4.2-12.2)
[2017-01-28 06:49] LABS: ANION GAP 5.9 (7-16); BLOOD UREA NITROGEN 8 mg/dL (7-17); CARBON DIOXIDE 27.1 mmol/L (22-30); CREATININE 0.7 mg/dL (0.52-1.04); EST GLOMERULAR FILTRATION RATE > 60 ml/min; GLUCOSE,RANDOM 109 mg/dL (70-110)
[2017-01-28 06:54] LABS: PLATELET ESTIMATE NORMAL (NORMAL)
[2017-01-28] MEDS: METHYLPREDNISOLONE SOD 40MG/VIAL IVP SCH ×2 (09:33→21:28)
[2017-01-28] MEDS: ENOXAPARIN 40 MG/0.4 ML SYR SC SCH (09:33)
[2017-01-28] MEDS: HYDROCODONE/APAP 10/325 TABLET PO PRN (09:43)
[2017-01-28] MEDS ORDERED: TRAMADOL HCL 50 MG TABLET PO PRN (11:25)
[2017-01-28] MEDS: HYDROMORPHONE HCL 2 MG/ML VIAL IVP PRN ×5 (11:49→21:38)
--- NOTE | 2017-01-28 11:59 | Physician Progress Note ---
Subjective - Date Date of Physician Progress Note: 01/28/17 - Subjective Subjective Comment: sitting up in bed comfortably. states she got good rest last night pain from lip cellulitis continues afebrile, no diaphoresis site less erythematous drainage from site, culture obtained reviewed cx report from aric- lawrence to odalis Objective - Vital Signs Vital Signs: Vital Signs - Last 24 Hrs Temp Pulse Resp BP Pulse Ox 01/28/17 03:00 98.1 F 67 18 100/65 97 01/27/17 21:00 80 16 01/27/17 19:40 16 01/27/17 19:00 97.6 F 66 18 108/73 99 - General General Appearance: Alert, Oriented x3, Cooperative, No acute distress Limitations: No limitations - Head Head exam: Normal inspection Head exam detail: negative: Abrasion, Contusion - Eye Eye exam: Normal appearance, PERRL Pupils: Normal accommodation - ENT ENT exam: Normal exam, Mucous membranes moist, Normal external ear exam, Normal orophraynx, TM's normal bilaterally Ear exam: Normal external inspection. negative: External canal tenderness Nasal Exam: Normal inspection. negative: Discharge, Sinus tenderness Mouth exam: Normal external inspection, Tongue normal Teeth exam: Normal inspection. negative: Dental caries Throat exam: Normal inspection. negative: Tonsillar erythema, Tonsillar exudate - Neck Neck exam: Normal inspection, Full ROM. negative: Tenderness - Respiratory Respiratory exam: Normal lung sounds bilaterally. negative: Respiratory distress - Cardiovascular Cardiovascular Exam: Regular rate, Normal rhythm, Normal heart sounds - GI/Abdominal GI/Abdominal exam: Soft, Normal bowel sounds. negative: Tenderness - Rectal Rectal exam: Deferred - exam: Deferred - Extremities Extremities exam: Normal inspection, Full ROM, Normal capillary refill. negative: Tenderness - Back Back exam: Reports: Normal inspection, Full ROM. Denies: Muscle spasm, Rash noted, Tenderness - Neurological Neurological exam: Alert, Normal gait, Oriented X3, Reflexes normal - Psychiatric Psychiatric exam: Normal affect, Normal mood - Skin Skin exam: Dry, Erythema (borders drawn over area of erythema, continues to improve), Intact, Rash, Warm Type of lesion: Laceration, Rash Distribution of rash: Face Description of rash: Blisters, Erythematous, Swelling, Tenderness Assessment and Plan - Assessment and Plan (1) Cellulitis, face Current Visit: Yes Status: Acute Base Code: L03.211 - CELLULITIS OF FACE Comment: 01/28 - WBC/CRP normal. afebrile - continue vanco - culture obtained - patient evaluated by Dr. Richards who increased pain management dose. - pain control: norco 10mg q6 and 1-2 mg of IV Dilaudid q 2- 4 prn. Tylenol or motrin, in addition, as needed. - continue 40 mg of IV Solu-medrol BID and Benadryl for swelling. - erythema continues to improve - CT of face: negative for abscess. Extra occular muscles normal. - Tolerating PO intake. (2) DVT prophylaxis Current Visit: Yes Status: Acute Base Code: [id number] - Comment: 01/28 - lovenox 40mg daily (3) Full code status Current Visit: Yes Status: Acute Base Code: Z78.9 - OTHER SPECIFIED HEALTH STATUS Comment: 01/28- full code Results - Labs Result Diagrams: 01/28/17 06:17 01/28/17 06:17 Labs Last 24 Hours: Laboratory Results - last 24 hr 01/28/17 01/28/17 01/28/17 06:17 06:17 06:17 WBC 9.9 RBC 4.24 Hgb 11.7 Hct 35.9 MCV 84.7 MCH 27.6 MCHC 32.6 RDW 14.9 H Plt Count 232 MPV 10.6 H Neutrophils % 83.0 H Band Neutrophils % 2.0 Eosinophils % Not Reportable Basophils % Not Reportable Lymphocytes 11.0 L Monocytes 4.0 Platelet Estimate Normal RBC Morphology Normal Sodium 140 Potassium 4.3 Chloride 107 Carbon Dioxide 27.1 Anion Gap 5.9 L BUN 8 Creatinine 0.7 Estimated GFR > 60 Random Glucose 109 Calcium 8.9 C-Reactive Protein 0.5 DVT/PE Assessment - Risk for VTE Risk for VTE: No Risk Level: Moderate Risk Assessment Date: 01/25/17 Risk Assessment Time: 23:17 VTE Orders Placed or Will Be Placed: Yes - Active Medicaitons Current Medications: Current Medications Acetaminophen (Tylenol 500mg Tab) 1,000 mg PO Q6H PRN PRN Reason: PAIN/TEMP Hydrocodone Bitart/Acetaminophen ([place] 10mg/325mg) 1 each PO Q6H PRN PRN Reason: Pain - Mild (1-4) Last Admin: 01/28/17 09:43 Dose: 1 each Diphenhydramine HCl (Benadryl Iv) 25 mg IVP Q6H PRN PRN Reason: Allergy Symptoms Last Admin: 01/27/17 21:13 Dose: 25 mg Docusate Sodium (Colace) 100 mg PO BID PRN PRN Reason: Constipation Last Admin: 01/26/17 21:28 Dose: 100 mg Enoxaparin Sodium (Lovenox) 40 mg SC DAILY [facility] Last Admin: 01/28/17 09:33 Dose: 40 mg Hydromorphone HCl (Dilaudid) 0.5 mg IVP Q4HR PRN PRN Reason: Pain - Moderate (5-7) Last Admin: 01/26/17 10:49 Dose: 0.5 mg Hydromorphone HCl (Dilaudid) 1 mg IVP Q4H PRN PRN Reason: Pain - Severe (8-10) Last Admin: 01/28/17 03:18 Dose: 1 mg Hydromorphone HCl (Dilaudid) 2 mg IVP Q2HR PRN PRN Reason: pain Last Admin: 01/28/17 11:49 Dose: 2 mg Hydroxyzine Pamoate (Vistaril) 25 mg PO TID PRN PRN Reason: ANXIETY Last Admin: 01/27/17 21:23 Dose: 25 mg Vancomycin HCl 1,000 mg/ (Sodium Chloride) 250 mls @ 250 mls/hr IVPB Q8H [facility] Stop: 02/01/17 15:01 Last Infusion: 01/28/17 07:22 Dose: Infused Ibuprofen (Motrin 600mg) 600 mg PO Q8H PRN PRN Reason: Pain - General Last Admin: 01/27/17 12:40 Dose: 600 mg Methylprednisolone Sodium Succinate (Solu-Medrol) 40 mg IVP BID [facility] Stop: 01/31/17 10:01 Last Admin: 01/28/17 09:33 Dose: 40 mg Miscellaneous (Remove Patch) 1 each TD Q24H [facility] Last Admin: 01/27/17 19:58 Dose: 1 each Nicotine (Nicotine 21mg) 1 patch TD Q24H [facility] Last Admin: 01/27/17 19:58 Dose: 1 patch Pantoprazole Sodium (Protonix) 40 mg PO QHS [facility] Last Admin: 01/27/17 21:15 Dose: 40 mg Sertraline HCl (Zoloft) 50 mg PO QHS [facility] Last Admin: 01/27/17 21:25 Dose: 50 mg Tramadol HCl (Ultram) 50 mg PO Q4HR PRN PRN Reason: pain Last Admin: 01/28/17 11:29 Dose: 50 mg Zolpidem Tartrate (Ambien) 5 mg PO QHS [facility] Last Admin: 01/27/17 21:15 Dose: 5 mg AMI Plan - Labs Result Diagrams: 01/28/17 06:17 01/28/17 06:17
[2017-01-28] MEDS: NICOTINE 21 MG/24 HOUR PATCH TD SCH (18:56)
[2017-01-28] MEDS: REMOVE PATCH 1 EACH MISC TD SCH (18:58)
[2017-01-28] MEDS: ZOLPIDEM TARTRATE 5 MG TABLET PO SCH (21:30)
[2017-01-28] MEDS: PANTOPRAZOLE SODIUM 40 MG TABLET PO SCH (21:30)
[2017-01-28] MEDS: SERTRALINE HCL 50 MG TABLET PO SCH (21:30)
[2017-01-28] MEDS: DIPHENHYDRAMINE HCL IV 50 MG/ML VIAL IVP PRN (21:32)
[2017-01-28] MEDS: HYDROXYZINE PAMOATE 25 MG CAPSULE PO PRN (21:37)
[2017-01-29] MEDS: HYDROCODONE/APAP 10/325 TABLET PO PRN ×2 (03:07→19:51)
[2017-01-29] MEDS: HYDROMORPHONE HCL 2 MG/ML VIAL IVP PRN ×7 (04:04→22:17)
[2017-01-29] MEDS: VANCOMYCIN HCL 1,000 MG in 0.9 % SODIUM CHLORIDE 250ML 250 ML IVPB SCH ×3 (08:17→23:30)
[2017-01-29] MEDS: DIPHENHYDRAMINE HCL IV 50 MG/ML VIAL IVP PRN ×2 (08:20→22:16)
[2017-01-29] MEDS ORDERED: PHENAZOPYRIDINE HCL 95 MG TABLET PO PRN (09:06)
--- NOTE | 2017-01-29 09:18 | Physician Progress Note ---
Subjective - Date Date of Physician Progress Note: 01/29/17 - Subjective Subjective Comment: sitting up in bed comfortably pain better controlled with increase of Dilaudid dose/freq right lip cellulitis continues to drain afebrile. normal WBC 8/10 tolerating meals c/o some burning with urination urine cx negative for growth Objective - Vital Signs Vital Signs: Vital Signs - Last 24 Hrs Temp Pulse Resp BP Pulse Ox 01/29/17 02:02 61 16 91/61 01/28/17 21:00 78 18 01/28/17 19:00 69 16 106/67 01/28/17 11:00 98.1 F 69 16 104/64 99 - General General Appearance: Alert, Oriented x3, Cooperative, No acute distress Limitations: No limitations - Head Head exam: Normal inspection Head exam detail: negative: Abrasion, Contusion - Eye Eye exam: Normal appearance, PERRL Pupils: Normal accommodation - ENT ENT exam: Normal exam, Mucous membranes moist, Normal external ear exam, Normal orophraynx, TM's normal bilaterally Ear exam: Normal external inspection. negative: External canal tenderness Nasal Exam: Normal inspection. negative: Discharge, Sinus tenderness Mouth exam: Normal external inspection, Tongue normal Teeth exam: Normal inspection. negative: Dental caries Throat exam: Normal inspection. negative: Tonsillar erythema, Tonsillar exudate - Neck Neck exam: Normal inspection, Full ROM. negative: Tenderness - Respiratory Respiratory exam: Normal lung sounds bilaterally. negative: Respiratory distress - Cardiovascular Cardiovascular Exam: Regular rate, Normal rhythm, Normal heart sounds - GI/Abdominal GI/Abdominal exam: Soft, Normal bowel sounds. negative: Tenderness - Rectal Rectal exam: Deferred - exam: Deferred - Extremities Extremities exam: Normal inspection, Full ROM, Normal capillary refill. negative: Tenderness - Back Back exam: Reports: Normal inspection, Full ROM. Denies: Muscle spasm, Rash noted, Tenderness - Neurological Neurological exam: Alert, Normal gait, Oriented X3, Reflexes normal - Psychiatric Psychiatric exam: Normal affect, Normal mood - Skin Skin exam: Dry, Erythema (borders drawn over area of erythema, continues to improve), Intact, Rash, Warm Type of lesion: Laceration, Rash Distribution of rash: Face Description of rash: Blisters, Erythematous, Swelling, Tenderness Assessment and Plan - Assessment and Plan (1) Cellulitis, face Current Visit: Yes Status: Acute Base Code: L03.211 - CELLULITIS OF FACE Comment: 01/29 - WBC/CRP normal 01/28. afebrile - continue vanco - cellulitis culture obtained - patient evaluated by Dr. Richards who increased pain management dose. - pain control: norco 10mg q6 and 1-2 mg of IV Dilaudid q 2- 4 prn. Tylenol or motrin, in addition, as needed. - continue 40 mg of IV Solu-medrol BID and Benadryl for swelling/pruritis. - erythema continues to improve - CT of face: negative for abscess. Extra occular muscles normal. - Tolerating PO intake. (2) DVT prophylaxis Current Visit: Yes Status: Acute Base Code: [id number] - Comment: 01/29 - lovenox 40mg daily (3) Full code status Current Visit: Yes Status: Acute Base Code: Z78.9 - OTHER SPECIFIED HEALTH STATUS Comment: 01/29- full code (4) Burning with urination Current Visit: Yes Status: Acute Base Code: R30.0 - DYSURIA Comment: 01/29 - urine cx unremarkable 01/27. wbc normal. afebrile. encouraged patient to increase fluids. pyridium prn for burning. consider repeat UA if dysuria does not improve. Results - Labs Result Diagrams: 01/28/17 06:17 01/28/17 06:17 Labs Last 24 Hours: Laboratory Results - last 24 hr 01/28/17 14:33 Vancomycin Trough 14.1 DVT/PE Assessment - Risk for VTE Risk for VTE: No Risk Level: Moderate Risk Assessment Date: 01/25/17 Risk Assessment Time: 23:17 VTE Orders Placed or Will Be Placed: Yes - Active Medicaitons Current Medications: Current Medications Acetaminophen (Tylenol 500mg Tab) 1,000 mg PO Q6H PRN PRN Reason: PAIN/TEMP Hydrocodone Bitart/Acetaminophen ([place] 10mg/325mg) 1 each PO Q6H PRN PRN Reason: Pain - Moderate (5-7) Last Admin: 01/29/17 03:07 Dose: 1 each Diphenhydramine HCl (Benadryl Iv) 25 mg IVP Q6H PRN PRN Reason: Allergy Symptoms Last Admin: 01/29/17 08:20 Dose: 25 mg Docusate Sodium (Colace) 100 mg PO BID PRN PRN Reason: Constipation Last Admin: 01/26/17 21:28 Dose: 100 mg Enoxaparin Sodium (Lovenox) 40 mg SC DAILY [facility] Last Admin: 01/28/17 09:33 Dose: 40 mg Hydromorphone HCl (Dilaudid) 2 mg IVP Q2HR PRN PRN Reason: Pain - Severe (8-10) Last Admin: 01/29/17 08:25 Dose: 2 mg Hydroxyzine Pamoate (Vistaril) 25 mg PO TID PRN PRN Reason: ANXIETY Last Admin: 01/28/17 21:37 Dose: 25 mg Vancomycin HCl 1,000 mg/ (Sodium Chloride) 250 mls @ 250 mls/hr IVPB Q8H [facility] Stop: 02/01/17 15:01 Last Admin: 01/29/17 08:17 Dose: 250 mls/hr Ibuprofen (Motrin 600mg) 600 mg PO Q8H PRN PRN Reason: Pain - General Last Admin: 01/27/17 12:40 Dose: 600 mg Methylprednisolone Sodium Succinate (Solu-Medrol) 40 mg IVP BID [facility] Stop: 01/31/17 10:01 Last Admin: 01/28/17 21:28 Dose: 40 mg Miscellaneous (Remove Patch) 1 each TD Q24H [facility] Last Admin: 01/28/17 18:58 Dose: 1 each Nicotine (Nicotine 21mg) 1 patch TD Q24H [facility] Last Admin: 01/28/17 18:56 Dose: 1 patch Pantoprazole Sodium (Protonix) 40 mg PO QHS [facility] Last Admin: 01/28/17 21:30 Dose: 40 mg Phenazopyridine HCl (Azo Urinary Pain Relief) 95 mg PO TID PRN PRN Reason: pain Stop: 01/31/17 09:07 Sertraline HCl (Zoloft) 50 mg PO QHS [facility] Last Admin: 01/28/17 21:30 Dose: 50 mg Tramadol HCl (Ultram) 50 mg PO Q4HR PRN PRN Reason: Pain - Mild (1-4) Last Admin: 01/28/17 11:29 Dose: 50 mg Zolpidem Tartrate (Ambien) 5 mg PO QHS [facility] Last Admin: 01/28/17 21:30 Dose: 5 mg AMI Plan - Labs Result Diagrams: 01/28/17 06:17 01/28/17 06:17
[2017-01-29] MEDS: ENOXAPARIN 40 MG/0.4 ML SYR SC SCH (09:35)
[2017-01-29] MEDS: METHYLPREDNISOLONE SOD 40MG/VIAL IVP SCH ×2 (09:36→22:15)
[2017-01-29] MEDS: IBUPROFEN 600 MG TABLET PO PRN (09:52)
[2017-01-29] MEDS: NICOTINE 21 MG/24 HOUR PATCH TD SCH ×2 (16:18→17:32)
[2017-01-29] MEDS: DOCUSATE SODIUM 100 MG CAPSULE PO PRN (16:18)
[2017-01-29] MEDS: REMOVE PATCH 1 EACH MISC TD SCH (17:32)
[2017-01-29] MEDS: PANTOPRAZOLE SODIUM 40 MG TABLET PO SCH (22:14)
[2017-01-29] MEDS: SERTRALINE HCL 50 MG TABLET PO SCH (22:14)
[2017-01-29] MEDS: HYDROXYZINE PAMOATE 25 MG CAPSULE PO PRN (22:16)
[2017-01-29] MEDS: ZOLPIDEM TARTRATE 5 MG TABLET PO SCH (22:17)
[2017-01-30] MEDS: HYDROMORPHONE HCL 2 MG/ML VIAL IVP PRN ×6 (05:52→23:27)
[2017-01-30] MEDS: VANCOMYCIN HCL 1,000 MG in 0.9 % SODIUM CHLORIDE 250ML 250 ML IVPB SCH ×3 (06:42→23:26)
[2017-01-30] MEDS: IBUPROFEN 600 MG TABLET PO PRN ×2 (06:45→18:41)
[2017-01-30] MEDS: DIPHENHYDRAMINE HCL IV 50 MG/ML VIAL IVP PRN ×2 (08:26→22:14)
[2017-01-30] MEDS: DOCUSATE SODIUM 100 MG CAPSULE PO PRN (08:37)
[2017-01-30] MEDS: METHYLPREDNISOLONE SOD 40MG/VIAL IVP SCH ×2 (09:47→22:14)
[2017-01-30] MEDS: ENOXAPARIN 40 MG/0.4 ML SYR SC SCH (09:47)
[2017-01-30] MEDS: MAGNESIUM HYDROXIDE 30 ML UDC PO PRN (09:48)
[2017-01-30] MEDS: NICOTINE 21 MG/24 HOUR PATCH TD SCH (20:30)
[2017-01-30] MEDS: REMOVE PATCH 1 EACH MISC TD SCH (20:33)
[2017-01-30] MEDS: ZOLPIDEM TARTRATE 5 MG TABLET PO SCH (22:03)
[2017-01-30] MEDS: PANTOPRAZOLE SODIUM 40 MG TABLET PO SCH (22:15)
[2017-01-30] MEDS: HYDROXYZINE PAMOATE 25 MG CAPSULE PO PRN (22:16)
[2017-01-30] MEDS: SERTRALINE HCL 50 MG TABLET PO SCH (22:17)
[2017-01-31] MEDS: HYDROMORPHONE HCL 2 MG/ML VIAL IVP PRN ×5 (06:18→22:24)
[2017-01-31] MEDS: VANCOMYCIN HCL 1,000 MG in 0.9 % SODIUM CHLORIDE 250ML 250 ML IVPB SCH ×3 (06:21→23:13)
[2017-01-31 06:43] LABS: ANION GAP 8.4 (7-16); BLOOD UREA NITROGEN 12 mg/dL (7-17); CARBON DIOXIDE 26.6 mmol/L (22-30); CREATININE 0.6 mg/dL (0.52-1.04); EST GLOMERULAR FILTRATION RATE > 60 ml/min; GLUCOSE,RANDOM 113 mg/dL (70-110)
[2017-01-31] MEDS: HYDROCODONE/APAP 10/325 TABLET PO PRN ×3 (08:06→20:36)
[2017-01-31] MEDS ORDERED: 0.9 % SODIUM CHLORIDE 1000ML 1,000 ML IV ONE (09:28)
[2017-01-31] MEDS: MAGNESIUM HYDROXIDE 30 ML UDC PO PRN (10:33)
[2017-01-31] MEDS: METHYLPREDNISOLONE SOD 40MG/VIAL IVP SCH (10:33)
[2017-01-31] MEDS: ENOXAPARIN 40 MG/0.4 ML SYR SC SCH (10:33)
[2017-01-31] MEDS: DIPHENHYDRAMINE HCL IV 50 MG/ML VIAL IVP PRN ×2 (11:45→22:24)
[2017-01-31] MEDS: REMOVE PATCH 1 EACH MISC TD SCH (18:57)
[2017-01-31] MEDS: NICOTINE 21 MG/24 HOUR PATCH TD SCH (18:57)
[2017-01-31] MEDS: ZOLPIDEM TARTRATE 5 MG TABLET PO SCH (21:52)
[2017-01-31] MEDS: SERTRALINE HCL 50 MG TABLET PO SCH (21:52)
[2017-01-31] MEDS: PANTOPRAZOLE SODIUM 40 MG TABLET PO SCH (21:52)
[2017-01-31] MEDS: HYDROXYZINE PAMOATE 25 MG CAPSULE PO PRN (21:54)
[2017-02-01] MEDS: HYDROMORPHONE HCL 2 MG/ML VIAL IVP PRN ×2 (00:48→08:14)
[2017-02-01] MEDS: HYDROCODONE/APAP 10/325 TABLET PO PRN ×2 (02:58→12:36)
[2017-02-01] MEDS: VANCOMYCIN HCL 1,000 MG in 0.9 % SODIUM CHLORIDE 250ML 250 ML IVPB SCH (06:55)
[2017-02-01] MEDS: DIPHENHYDRAMINE HCL IV 50 MG/ML VIAL IVP PRN (08:14)
[2017-02-01] MEDS: ENOXAPARIN 40 MG/0.4 ML SYR SC SCH (10:29)
--- NOTE | 2017-02-01 12:07 | Discharge Summary ---
Providers Discharge Summary Date: 02/01/17 Date of admission: 01/25/17 14:25 Expected Date of Discharge: 02/01/17 Attending physician: Enrrique Jackson Primary care physician: NAWAF AVELAR Physical Exam - Vital Signs Vital Signs: Vital Signs - Last 24 Hrs Temp Pulse Resp BP Pulse Ox 02/01/17 07:00 97.3 F L 70 16 126/85 98 01/31/17 23:30 98.0 F 62 18 101/63 99 01/31/17 21:00 16 01/31/17 15:00 98.3 F 72 16 115/79 98 - General General Appearance: Alert, Oriented x3, Cooperative, No acute distress Limitations: No limitations - Head Head exam: Normal inspection Head exam detail: negative: Abrasion, Contusion - Eye Eye exam: Normal appearance, PERRL Pupils: Normal accommodation - ENT ENT exam: Normal exam, Mucous membranes moist, Normal external ear exam, Normal orophraynx, TM's normal bilaterally Ear exam: Normal external inspection. negative: External canal tenderness Nasal Exam: Normal inspection. negative: Discharge, Sinus tenderness Mouth exam: Normal external inspection, Tongue normal Teeth exam: Normal inspection. negative: Dental caries Throat exam: Normal inspection. negative: Tonsillar erythema, Tonsillar exudate - Neck Neck exam: Normal inspection, Full ROM. negative: Tenderness - Respiratory Respiratory exam: Normal lung sounds bilaterally. negative: Respiratory distress - Cardiovascular Cardiovascular Exam: Regular rate, Normal rhythm, Normal heart sounds - GI/Abdominal GI/Abdominal exam: Soft, Normal bowel sounds. negative: Tenderness - Rectal Rectal exam: Deferred - exam: Deferred - Extremities Extremities exam: Normal inspection, Full ROM, Normal capillary refill. negative: Tenderness - Back Back exam: Reports: Normal inspection, Full ROM. Denies: Muscle spasm, Rash noted, Tenderness - Neurological Neurological exam: Alert, Normal gait, Oriented X3, Reflexes normal - Psychiatric Psychiatric exam: Normal affect, Normal mood - Skin Skin exam: Dry, Erythema (borders drawn over area of erythema at admission, continues to improve), Intact, Rash, Warm Type of lesion: Laceration (over upper top right lip), Rash Distribution of rash: Face Description of rash: Blisters, Erythematous, Swelling, Tenderness Hospitalization - Hospitalization Admission Diagnosis: facial cellulitis - Problem List/Discharge Diagnosis (1) Cellulitis of lip Current Visit: Yes Status: Acute Base Code: K13.0 - DISEASES OF LIPS Comment: 02/01- small abscess in lip opened and drained over weekend. Culture and sensitivities back today and show staph sensitive to bactrim and keflex. will follow up in clinic to see if needs to have further abscess drained in clinic. (2) Cellulitis, face Current Visit: Yes Status: Acute Base Code: L03.211 - CELLULITIS OF FACE Comment: 02/01 - WBC/CRP normal 01/28. afebrile - cellulitis culture obtained - pain control: norco 10mg q6 and 1-2 mg of IV Dilaudid q 2- 4 prn while inpatient. will discharge home with norco 10 q 4. Tylenol or motrin, in addition, as needed. Advised licocain spray for inside mouth. - erythema continues to improve - CT of face: negative for abscess. Extra occular muscles normal. - Tolerating PO intake. (3) DVT prophylaxis Current Visit: Yes Status: Acute Base Code: [id number] - Comment: 02/01 - lovenox 40mg daily (4) Full code status Current Visit: Yes Status: Acute Base Code: Z78.9 - OTHER SPECIFIED HEALTH STATUS Comment: 02/01- full code - Hospitalization Course Disposition: Home Health Service Abnormal Labs: Abnormal Lab Results 01/27/17 01/27/17 01/27/17 Range/Units 08:45 08:45 11:30 WBC 13.2 H (4.2-12.2) K/uL MCH 26.9 L (27-33) pg MCHC 31.9 L (32-36) g/dl RDW 14.8 H (11.5-14.5) % MPV 10.5 H (7.4-10.4) fl Neutrophils % 84.0 H (47-80) % Lymphocytes 10.0 L (16-45) % Anion Gap 6.2 L (7-16) Random Glucose (70-110) mg/dL Ur Leukocyte Esterase Trace H (NEGATIVE) 01/28/17 01/28/17 01/31/17 Range/Units 06:17 06:17 06:05 WBC (4.2-12.2) K/uL MCH (27-33) pg MCHC (32-36) g/dl RDW 14.9 H (11.5-14.5) % MPV 10.6 H (7.4-10.4) fl Neutrophils % 83.0 H (47-80) % Lymphocytes 11.0 L (16-45) % Anion Gap 5.9 L (7-16) Random Glucose 113 H (70-110) mg/dL Ur Leukocyte Esterase (NEGATIVE) Condition at Discharge: (2) Stable Discharge Medications - Discharge Medications Prescriptions: Hydrocodone/Acetaminophen [[place] 10-325 Tablet] 1 each PO Q4HR #30 tablet Cephalexin [Keflex] 500 mg PO BID #20 cap Sulfamethoxazole/Trimethoprim [Bactrim Ds Tablet] 1 each PO BID #20 tablet Home Medications: Ambulatory Orders Hydroxyzine Pamoate [Vistaril] 25 mg PO ASDIR 01/25/17 [Last Taken Unknown] Cephalexin [Keflex] 500 mg PO BID #20 cap 02/01/17 [Last Taken Unknown] Hydrocodone/Acetaminophen [[place] 10-325 Tablet] 1 each PO Q4HR #30 tablet [Last Taken Unknown] Sulfamethoxazole/Trimethoprim [Bactrim Ds Tablet] 1 each PO BID #20 tablet 02/01 [Last Taken Unknown] Discharge Plan - Discharge Instructions Activity at Discharge: Increase Activity as Tolerated Diet at Discharge: Regular Diet
== END 2017-02-01 13:32 | disposition home health service (06) | DRG 603 ==
LOC: ER 11:55 → MEDSURG 14:25
PROVIDERS: ADMIT Emergency Medicine; ATTEND Emergency Medicine
DX: L03.211 Cellulitis of face (principal); K13.0 Diseases of lips; Z78.9 Other specified health status; F17.200 Nicotine dependence, unspecified, uncomplicated; B95.61 Methicillin susceptible Staphylococcus aureus infection as the cause of diseases classified elsewhere
CPT/HCPCS: 70487; 80048; 80202; 81001; 82310; 85025; 85027; 86140; 87070; 96374; 99223; 99232; 99233; 99239; 99285; J1170; J1200; J1650; J2920; J7050

== ENCOUNTER 2017-07-09 08:56 | Emergency (ER) | payer MEDICAID ==
[2017-07-09] MEDS ORDERED: CLINDAMYCIN 600MG/50ML PREMIX 600 MG/50 ML BAG IVPB ONE (09:28)
--- NOTE | 2017-07-09 09:33 | Emergency Department Record ---
History of Present Illness - General Chief complaint: Abscess Stated complaint: MARSA Time Seen by Provider: 07/09/17 09:06 Source: Patient Mode of Arrival: Ambulatory Limitations: No limitations - History of Present Illness Initial comments: The patient had a pimple to her L cheek 2 days ago that she did pop. Since it has become more painful and swollen. 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 She denies any fever, chills, or B[place]. MD complaint: Abscess/boil, Rash Onset/Timin -: Days(s) Hx Tetanus Toxoid Vaccination: Yes Year of Tetanus Vaccination: 2014 Patient Tetanus UTD (within 5 yrs): Yes Location: Face Severity: Moderate Severity scale (1-10): 9 Quality: Aching Consistency: Constant Improves with: None Worsens with: Movement Context: None Associated symptoms: Denies other symptoms Treatments Prior to Arrival: Antibiotic, Other Treatment Prior to Arrival Comment:: Has started Clindamycin and warm compresses - Related Data Previous Rx's Medication Instructions Recorded Clindamycin HCl [Cleocin HCl] 300 mg PO QID #28 capsule 07/09/17 Hydrocodone/Acetaminophen [[place] 1 - 2 each PO QID #20 tablet 07/09/17 5-325 Tablet] Allergies Allergy/AdvReac Type Severity Reaction Status Date / Time No Known Drug Allergies Allergy Verified 01/24/17 13:31 Travel Screening - Travel/Exposure Within Last 30 Days Have you traveled within the last 30 days?: No - Travel/Exposure Within Last Year Have you traveled outside the [place] in the last year?: No - Additonal Travel Details Have you been exposed to anyone with a communicable illness?: No - Travel Symptoms Symptom Screening: None Review of Systems Constitutional: Denies: Chills, Fever Past Medical History - SOCIAL HISTORY Smoking Status: Heavy tobacco smoker (>10/day) Alcohol Use: Occasional Drug Use: None - RESPIRATORY Hx Respiratory Disorders: No - CARDIOVASCULAR Hx Cardio Disorders: No - NEURO Hx Neuro Disorders: No - GI Hx GI Disorders: No - Hx Genitourinary Disorders: No - ENDOCRINE Hx Endocrine Disorders: No - MUSCULOSKELETAL Hx Musculoskeletal Disorders: No - PSYCH Hx Psych Problems: No - HEMATOLOGY/ONCOLOGY Hx Hematology/Oncology Disorders: Yes Hx Anemia: Yes (Had hysterectomy due to bleeding) Family Medical History Any Significant Family History?: Yes Hx HTN: Father Physical Exam - General General Appearance: Alert, Oriented x3, Cooperative, No acute distress - Head Head exam: Atraumatic, Normocephalic, Normal inspection - Eye Eye exam: Normal appearance, PERRL, EOMI - ENT ENT exam: Other (There is a tender area to the mid L maxillary area with 1x1 cm nodular lesion present. There is no fluctuance present. There is very minimal erythema over the nodular area with very minimal swelling.). negative: Normal exam Course Vital Signs 07/09/17 09:04 Temperature 98 F Pulse Rate 73 Respiratory 20 Rate Blood Pressure 107/79 Pulse Ox 98 - Reevaluation(s) Reevaluation #1: The patient is doing much better at this time. I did discuss the case with Dr. Roman and he does feel the patient needs a trial of outpatient therapy prior to admission to the hospital which I do agree with. She is to return to the ER for any worsening symptoms. 07/09/17 10:18 Medical Decision Making - Lab Data Result diagrams: 07/09/17 09:30 07/09/17 09:30 Disposition Disposition: Discharge Clinical Impression: Cellulitis, face Disposition: Home, Self-Care Condition: (2) Stable Instructions: Cellulitis (ED) Additional Instructions: Please take the Clindamycin as directed and use [place] for pain. Please use warm compresses to the L cheek when possible. Return to the ER for any increased pain , swelling, redness or fever. Please F/U with your PCP next week for recheck. Prescriptions: Clindamycin HCl [Cleocin HCl] 300 mg PO QID #28 capsule Hydrocodone/Acetaminophen [[place] 5-325 Tablet] 1 - 2 each PO QID #20 tablet Forms: Patient Portal Access Time of Disposition: 10:17 Quality - Quality Measures Quality Measures: N/A - Blood Pressure Screening View Details: Yes Does Patient Have Any of the Following: No Blood Pressure Classification: Normal BP Reading Systolic Measurement: 108 Diastolic Measurement: 78 Screening for High Blood Pressure: < Normal BP, F/U Not Required > [G8783]
[2017-07-09 09:46] LABS: BASO % 0.5 % (0-6); EOS % 5.3 % (0-6); GRAN % 64.2 % (47-80); HEMATOCRIT 41.2 % (35.0-47.0); HEMOGLOBIN 13.5 gm/dl (11.6-16.0); LYMPH % 22.6 % (16-45); MEAN CELL VOLUME 83.4 fl (81-97); MEAN CORPUSCULAR HEMOGLOBIN 27.3 pg (27-33); MEAN CORPUSCULAR HGB CONC 32.8 g/dl (32-36); MEAN PLATELET VOLUME 10.5 fl (7.4-10.4); MONO % 7.4 % (0-9); PLATELET COUNT 234 K/uL (130-400); RED BLOOD COUNT 4.94 M/uL (3.80-5.40); RED CELL DISTRIBUTION WIDTH 14.8 % (11.5-14.5); WHITE BLOOD COUNT W/O DIFF 8.2 K/uL (4.2-12.2)
[2017-07-09] MEDS ORDERED: HYDROCODONE/APAP 5/325MG TABLET PO ONE (09:49)
[2017-07-09 10:00] LABS: BLOOD UREA NITROGEN 13 mg/dL (6-20); C-REACTIVE PROTEIN 0.18 mg/dL (<0.5); CREATININE 0.8 mg/dL (0.5-0.9); EST GLOMERULAR FILTRATION RATE > 60 mL/min; GLUCOSE,RANDOM 81 mg/dL (74-109)
== END 2017-07-09 10:33 | disposition home or self-care (01) ==
LOC: ER 08:56
DX: L03.211 Cellulitis of face (principal)
CPT/HCPCS: 80048; 85025; 86140; 96365; 99284

== ENCOUNTER 2017-07-11 11:17 | Emergency (ER) | payer MEDICAID ==
[2017-07-11] MEDS ORDERED: TMP/SMZ 160MG/800MG TAB PO ONE (12:20)
[2017-07-11] MEDS ORDERED: CLINDAMYCIN 600MG/50ML PREMIX 600 MG/50 ML BAG IVPB ONE (12:20)
--- NOTE | 2017-07-11 12:24 | Emergency Department Record ---
History of Present Illness - General Chief complaint: Facial Swelling Stated complaint: FACIAL SWELLING/PAIN Time Seen by Provider: 07/11/17 11:25 Source: Patient Mode of Arrival: Ambulatory - History of Present Illness Initial Comments: recheck of abscess and got some drainage out of the abscess yesterday and there is less redness per Onset/Timin -: Days(s) Symptoms: Facial swelling Severity: Severe - Related Data Previous Rx's Medication Instructions Recorded Clindamycin HCl [Cleocin HCl] 300 mg PO QID #28 capsule 07/09/17 Hydrocodone/Acetaminophen [[place] 1 - 2 each PO QID #20 tablet 07/09/17 5-325 Tablet] Hydrocodone/Acetaminophen [[place] 1 each PO Q4HR #14 tablet 07/11/17 7.5-325 Tablet] Hydrocodone/Acetaminophen [[place] 1 each PO Q4HR #14 tablet 07/11/17 7.5-325 Tablet] Sulfamethoxazole/Trimethoprim 1 each PO BID #20 tablet 07/11/17 [Bactrim Ds Tablet] Allergies Allergy/AdvReac Type Severity Reaction Status Date / Time No Known Drug Allergies Allergy Verified 07/11/17 11:33 Travel Screening - Travel/Exposure Within Last 30 Days Have you traveled within the last 30 days?: No Review of Systems Reviewed: No additional complaints except as noted below Constitutional: Reports: As per HPI. Denies: Chills, Fever, Malaise, Night sweats, Weakness, Weight change Eyes: Reports: As per HPI. Denies: Eye discharge, Eye pain, Photophobia, Vision change ENT: Reports: As per HPI. Denies: Congestion, Dental pain, Ear pain, Epistaxis , Hearing loss, Throat pain Respiratory: Reports: As per HPI. Denies: Cough, Dyspnea, Hemoptysis, Stridor, Wheezes Cardiovascular: Reports: As per HPI. Denies: Arrhythmia, Chest pain, Dyspnea on exertion, Edema, Murmurs, Orthopnea, Palpitations, Paroxysmal nocturnal dyspnea, Rheumatic Fever, Syncope Endocrine: Reports: As per HPI. Denies: Fatigue, Heat or cold intolerance, Polydipsia, Polyuria Gastrointestinal: Reports: As per HPI. Denies: Abdominal pain, Constipation, Diarrhea, Hematemesis, Hematochezia, Melena, Nausea, Vomiting Genitourinary: Reports: As per HPI. Denies: Abnormal menses, Discharge, Dyspareunia, Dysuria, Frequency, Hematuria, Incontinence, Retention, Urgency Musculoskeletal: Reports: As per HPI. Denies: Arthralgia, Back pain, Gout, Joint swelling, Myalgia, Neck pain Skin: Reports: As per HPI, Other (abscess). Denies: Bruising, Change in color, Change in hair/nails, Lesions, Pruritus, Rash Neurological: Reports: As per HPI. Denies: Abnormal gait, Confusion, Headache, Numbness, Paresthesias, Seizure, Tingling, Tremors, Vertigo, Weakness Psychiatric: Reports: As per HPI. Denies: Anxiety, Auditory hallucinations, Depression, Homicidal thoughts, Suicidal thoughts, Visual hallucinations Hematological/Lymphatic: Reports: As per HPI. Denies: Anemia, Blood Clots, Easy bleeding, Easy bruising, Swollen glands Past Medical History - SOCIAL HISTORY Smoking Status: Heavy tobacco smoker (>10/day) Alcohol Use: None Drug Use: None - RESPIRATORY Hx Respiratory Disorders: No - CARDIOVASCULAR Hx Cardio Disorders: No - NEURO Hx Neuro Disorders: No - GI Hx GI Disorders: No - Hx Genitourinary Disorders: No - ENDOCRINE Hx Endocrine Disorders: No - MUSCULOSKELETAL Hx Musculoskeletal Disorders: No - PSYCH Hx Psych Problems: No - HEMATOLOGY/ONCOLOGY Hx Hematology/Oncology Disorders: Yes Hx Anemia: Yes (Had hysterectomy due to bleeding) Family Medical History Any Significant Family History?: Yes Hx HTN: Father Physical Exam - General General Appearance: Alert, Oriented x3, Cooperative, No acute distress - Head Head exam: Normal inspection - Eye Eye exam: Normal appearance, PERRL Pupils: Normal accommodation - ENT ENT exam: Normal exam, Mucous membranes moist, Normal external ear exam, Normal orophraynx, TM's normal bilaterally Ear exam: Normal external inspection. negative: External canal tenderness Nasal Exam: Normal inspection. negative: Discharge, Sinus tenderness Mouth exam: Normal external inspection, Tongue normal Teeth exam: Normal inspection. negative: Dental caries Throat exam: Normal inspection. negative: Tonsillar erythema, Tonsillar exudate - Neck Neck exam: Normal inspection, Full ROM. negative: Tenderness - Respiratory Respiratory exam: Normal lung sounds bilaterally. negative: Respiratory distress - Cardiovascular Cardiovascular Exam: Regular rate, Normal rhythm, Normal heart sounds - GI/Abdominal GI/Abdominal exam: Soft, Normal bowel sounds. negative: Tenderness - Rectal Rectal exam: Deferred - exam: Deferred - Extremities Extremities exam: Normal inspection, Full ROM, Normal capillary refill. negative: Tenderness - Back Back exam: Reports: Normal inspection, Full ROM. Denies: Muscle spasm, Rash noted, Tenderness - Neurological Neurological exam: Alert, Normal gait, Oriented X3, Reflexes normal - Psychiatric Psychiatric exam: Normal affect, Normal mood - Skin Skin exam: Other (abscess left cheek) Course Vital Signs 07/11/17 11:36 Temperature 98.2 F Pulse Rate 81 Respiratory 16 Rate Blood Pressure 120/82 Pulse Ox 96 - Reevaluation(s) Reevaluation #1: drained abscess with gentle pressure from the inside of the cheek and it drained purulent material. warm compress applied 07/11/17 12:23 Medical Decision Making - Lab Data Result diagrams: 07/11/17 12:39 Disposition Clinical Impression: Abscess of face Disposition: Home, Self-Care Condition: (1) Good Instructions: Abscess (ED) Additional Instructions: warm compresses follow up with primary Dr in 1-2 days take both bactrim and clindamycin Prescriptions: Hydrocodone/Acetaminophen [[place] 7.5-325 Tablet] 1 each PO Q4HR #14 tablet Hydrocodone/Acetaminophen [[place] 7.5-325 Tablet] 1 each PO Q4HR #14 tablet Sulfamethoxazole/Trimethoprim [Bactrim Ds Tablet] 1 each PO BID #20 tablet Forms: Patient Portal Access Time of Disposition: 13:55 Quality - Quality Measures Quality Measures: N/A - Blood Pressure Screening Does Patient Have Any of the Following: No Blood Pressure Classification: Pre-Hypertensive BP Reading Systolic Measurement: 120 Diastolic Measurement: 82 Screening for High Blood Pressure: < Pre-Hypertensive BP, F/U Documented > [ G8950] Pre-Hypertensive Follow-up Interventions: Referral to alternative/primary care provider.
[2017-07-11] MEDS ORDERED: HYDROMORPHONE HCL 1 MG/ML SYRINGE IVP ONE (12:29)
[2017-07-11 12:48] LABS: URINE APPEARANCE CLEAR; URINE BILIRUBIN NEGATIVE (NEGATIVE); URINE BLOOD NEGATIVE (NEGATIVE); URINE COLOR YELLOW; URINE GLUCOSE (UA) NEGATIVE (NEGATIVE); URINE KETONE NEGATIVE (NEGATIVE); URINE LEUKOCYTE ESTERASE NEGATIVE (NEGATIVE); URINE NITRITE POSITIVE (NEGATIVE); URINE PROTEIN NEGATIVE (NEGATIVE)
[2017-07-11 12:51] LABS: BASO % 0.4 % (0-6); EOS % 5.7 % (0-6); GRAN % 63.3 % (47-80); HEMATOCRIT 42.2 % (35.0-47.0); HEMOGLOBIN 14.3 gm/dl (11.6-16.0); LYMPH % 23.9 % (16-45); MEAN CELL VOLUME 82.3 fl (81-97); MEAN CORPUSCULAR HEMOGLOBIN 27.9 pg (27-33); MEAN CORPUSCULAR HGB CONC 33.9 g/dl (32-36); MEAN PLATELET VOLUME 11.1 fl (7.4-10.4); MONO % 6.7 % (0-9); PLATELET COUNT 218 K/uL (130-400); RED BLOOD COUNT 5.13 M/uL (3.80-5.40); RED CELL DISTRIBUTION WIDTH 14.4 % (11.5-14.5); WHITE BLOOD COUNT W/O DIFF 7.4 K/uL (4.2-12.2)
[2017-07-11 12:57] LABS: URINE BACTERIA 1+; URINE RBC 0 - 2 (NONE SEEN); URINE WBC 0 - 2 (0-2/hpf)
[2017-07-11] MEDS ORDERED: HYDROCODONE/APAP 7.5/325MG TABLET PO ONE (13:43)
== END 2017-07-11 14:13 | disposition home or self-care (01) ==
LOC: ER 11:17
DX: L02.01 Cutaneous abscess of face (principal); F17.210 Nicotine dependence, cigarettes, uncomplicated
CPT/HCPCS: 81001; 85025; 96374; 96375; 99282; J1170

== ENCOUNTER 2017-07-12 09:57 | Emergency (ER) | payer MEDICAID ==
[2017-07-12] MEDS ORDERED: VANCOMYCIN HCL 1,000 MG in 0.9 % SODIUM CHLORIDE 250ML 250 ML IVPB ONE (10:51)
[2017-07-12] MEDS ORDERED: HYDROMORPHONE HCL 1 MG/ML SYRINGE IVP ONE (10:52)
[2017-07-12] MEDS ORDERED: ONDANSETRON HCL IV 4 MG/2 ML VIAL IVP ONE (10:52)
--- NOTE | 2017-07-12 10:57 | Emergency Department Record ---
History of Present Illness - General Chief Complaint: Recheck - Other Stated Complaint: MRSA ON FACE Time Seen by Provider: 07/12/17 10:33 Source: Patient - History of Present Illness Initial Comments: Patient is tearful and upset because her right face abscess of known MRSA is more painful and her prior visit. She has had 2 IV clindamycin doses on previous visits. Her swelling and redness her states is lessened and improved, but he is concerned because she is more painful at the site on her left cheek. Yesterday Dr. Jackson swueezed out pyrulent drainage and she also squeezed some out at home, but now it is more painful. She is stating that she needs a pic line and IV antibiotics because "vancomycin is the onlyl thing that works on my MRSA." She denies f,c, or other symptoms. Onset/Timin -: Days(s) Initial Visit For: Abscess Returns Today for: Other Symptoms Since Prior Visit: Worsening pain Associated Symptoms: None Treatments Prior to Arrival: Given antibiotics on initial visit, Given pain medications on initial visit - Related Data Previous Rx's Medication Instructions Recorded Hydrocodone/Acetaminophen [[place] 1 - 2 each PO QID #20 tablet 07/09/17 5-325 Tablet] Hydrocodone/Acetaminophen [[place] 1 each PO Q4HR #14 tablet 07/11/17 7.5-325 Tablet] Hydrocodone/Acetaminophen [[place] 1 each PO Q4HR #14 tablet 07/11/17 7.5-325 Tablet] Sulfamethoxazole/Trimethoprim 1 each PO BID #20 tablet 07/11/17 [Bactrim Ds Tablet] Cephalexin [Keflex] 500 mg PO QID #39 cap 07/12/17 Levofloxacin [Levaquin Tab] 500 mg PO DAILY #10 tab 07/12/17 Allergies Allergy/AdvReac Type Severity Reaction Status Date / Time No Known Drug Allergies Allergy Verified 07/11/17 11:33 Travel Screening - Travel/Exposure Within Last 30 Days Have you traveled within the last 30 days?: No Review of Systems Reviewed: No additional complaints except as noted below Constitutional: Reports: As per HPI. Denies: Chills, Fever, Malaise, Night sweats, Weakness, Weight change Eyes: Reports: As per HPI. Denies: Eye discharge, Eye pain, Photophobia, Vision change ENT: Reports: As per HPI. Denies: Congestion, Dental pain, Ear pain, Epistaxis , Hearing loss, Throat pain Respiratory: Reports: As per HPI. Denies: Cough, Dyspnea, Hemoptysis, Stridor, Wheezes Cardiovascular: Reports: As per HPI. Denies: Arrhythmia, Chest pain, Dyspnea on exertion, Edema, Murmurs, Orthopnea, Palpitations, Paroxysmal nocturnal dyspnea, Rheumatic Fever, Syncope Endocrine: Reports: As per HPI. Denies: Fatigue, Heat or cold intolerance, Polydipsia, Polyuria Gastrointestinal: Reports: As per HPI. Denies: Abdominal pain, Constipation, Diarrhea, Hematemesis, Hematochezia, Melena, Nausea, Vomiting Genitourinary: Reports: As per HPI. Denies: Abnormal menses, Discharge, Dyspareunia, Dysuria, Frequency, Hematuria, Incontinence, Retention, Urgency Musculoskeletal: Reports: As per HPI. Denies: Arthralgia, Back pain, Gout, Joint swelling, Myalgia, Neck pain Skin: Reports: As per HPI. Denies: Bruising, Change in color, Change in hair/ nails, Lesions, Pruritus, Rash Neurological: Reports: As per HPI. Denies: Abnormal gait, Confusion, Headache, Numbness, Paresthesias, Seizure, Tingling, Tremors, Vertigo, Weakness Psychiatric: Reports: As per HPI. Denies: Anxiety, Auditory hallucinations, Depression, Homicidal thoughts, Suicidal thoughts, Visual hallucinations Hematological/Lymphatic: Reports: As per HPI. Denies: Anemia, Blood Clots, Easy bleeding, Easy bruising, Swollen glands Past Medical History - SOCIAL HISTORY Smoking Status: Heavy tobacco smoker (>10/day) Alcohol Use: None Drug Use: None - RESPIRATORY Hx Respiratory Disorders: No - CARDIOVASCULAR Hx Cardio Disorders: No - NEURO Hx Neuro Disorders: No - GI Hx GI Disorders: No - Hx Genitourinary Disorders: No - ENDOCRINE Hx Endocrine Disorders: No - MUSCULOSKELETAL Hx Musculoskeletal Disorders: No - PSYCH Hx Psych Problems: No - HEMATOLOGY/ONCOLOGY Hx Hematology/Oncology Disorders: Yes Hx Anemia: Yes (Had hysterectomy due to bleeding) Family Medical History Any Significant Family History?: Yes Hx HTN: Father Physical Exam - General General Appearance: Alert, Oriented x3, Cooperative, Mild distress, Other ( tearful, [place]) - Head Head exam: Normal inspection Image of Face/Head: 1 - less than 1 cm size lesion with recent drainage evident, not visible inside mouth, no facial cellulitis, no facial swelling on inspection. - Eye Eye exam: Normal appearance, PERRL Pupils: Normal accommodation - ENT ENT exam: Normal exam, Mucous membranes moist, Normal external ear exam, Normal orophraynx, TM's normal bilaterally Ear exam: Normal external inspection. negative: External canal tenderness Nasal Exam: Normal inspection. negative: Discharge, Sinus tenderness Mouth exam: Normal external inspection, Tongue normal Teeth exam: Normal inspection. negative: Dental caries Throat exam: Normal inspection. negative: Tonsillar erythema, Tonsillar exudate - Neck Neck exam: Normal inspection, Full ROM. negative: Tenderness - Respiratory Respiratory exam: Normal lung sounds bilaterally. negative: Respiratory distress - Cardiovascular Cardiovascular Exam: Regular rate, Normal rhythm, Normal heart sounds - GI/Abdominal GI/Abdominal exam: Soft, Normal bowel sounds. negative: Tenderness - Rectal Rectal exam: Deferred - exam: Deferred - Extremities Extremities exam: Normal inspection, Full ROM, Normal capillary refill. negative: Tenderness - Back Back exam: Reports: Normal inspection, Full ROM. Denies: Muscle spasm, Rash noted, Tenderness - Neurological Neurological exam: Alert, Normal gait, Oriented X3, Reflexes normal - Psychiatric Psychiatric exam: Normal affect, Normal mood - Skin Skin exam: Dry, Intact, Normal color, Warm Course Vital Signs 07/12/17 10:32 Temperature 98.3 F Pulse Rate 75 Respiratory 20 Rate Blood Pressure 122/102 Pulse Ox 97 - Reevaluation(s) Reevaluation #1: Pulled up wound culture from 01-28-17 which shows clindamycin, which she is urrently taking, IS RESISTANT. VAncomycin is sensitive, as are many other antibiotics such as gentamicin, levofloxacin, oxacillin tetracycline and bactrim. The patient is taking bactrim and clindamycin. 07/12/17 10:57 Reevaluation #2: 07/12/17 12:[address] Roman who will come see the patient. Reevaluation #3: Dr Roman in the department and has examined patient requests discharge home , levaquin, continue bactrim, and face wash per his instructions. 07/12/17 12:35 Medical Decision Making - Management Options MDM Management: No Additional Work-up Planned - Data Complexity MDM Data: Labs Ordered and/or Reviewed - Lab Data Result diagrams: 07/12/17 11:10 07/12/17 11:10 Disposition Disposition: Discharge Clinical Impression: Abscess of face Disposition: Home, Self-Care Condition: (1) Good Instructions: MRSA (Methicillin-Resistant Staphylococcus Aureus) (ED), Abscess (ED) Additional Instructions: Discontinue Clindamycin. Do not fill Keflex script which was escribed to your pharmacy. Continue Bactrim. Levaquin 500 as directed. Begin Keflex 500 mg every 6 hours. Follow up with Dr Roman Jul 22 as arranged by him for further management as needed. Prescriptions: Cephalexin [Keflex] 500 mg PO QID #39 cap Levofloxacin [Levaquin Tab] 500 mg PO DAILY #10 tab Forms: Patient Portal Access Quality - Quality Measures Quality Measures: N/A - Blood Pressure Screening Does Patient Have Any of the Following: No Blood Pressure Classification: Hypertensive Reading Systolic Measurement: 122 Diastolic Measurement: 102 Screening for High Blood Pressure: < Pre-Hypertensive BP, F/U Documented > [ G8950] Pre-Hypertensive Follow-up Interventions: Follow-up with rescreen every year.
[2017-07-12] MEDS ORDERED: CEPHALEXIN 500 MG CAPSULE PO STA (11:02)
[2017-07-12 11:23] LABS: BASO % 0.2 % (0-6); EOS % 4.6 % (0-6); GRAN % 68.8 % (47-80); HEMATOCRIT 39.2 % (35.0-47.0); HEMOGLOBIN 13.1 gm/dl (11.6-16.0); LYMPH % 20.5 % (16-45); MEAN CELL VOLUME 83.1 fl (81-97); MEAN CORPUSCULAR HEMOGLOBIN 27.8 pg (27-33); MEAN CORPUSCULAR HGB CONC 33.4 g/dl (32-36); MEAN PLATELET VOLUME 10.5 fl (7.4-10.4); MONO % 5.9 % (0-9); PLATELET COUNT 224 K/uL (130-400); RED BLOOD COUNT 4.72 M/uL (3.80-5.40); RED CELL DISTRIBUTION WIDTH 14.4 % (11.5-14.5); WHITE BLOOD COUNT W/O DIFF 8.2 K/uL (4.2-12.2)
[2017-07-12 11:35] LABS: BLOOD UREA NITROGEN 14 mg/dL (6-20); CREATININE 0.9 mg/dL (0.5-0.9); EST GLOMERULAR FILTRATION RATE > 60 mL/min
[2017-07-12 11:38] LABS: GLUCOSE,RANDOM 81 mg/dL (74-109)
[2017-07-12] MEDS ORDERED: HYDROCODONE/APAP 7.5/325MG TABLET PO ONE (13:17)
== END 2017-07-12 13:43 | disposition home or self-care (01) ==
LOC: ER 09:57
DX: L02.01 Cutaneous abscess of face (principal); F17.210 Nicotine dependence, cigarettes, uncomplicated; B95.62 Methicillin resistant Staphylococcus aureus infection as the cause of diseases classified elsewhere; Z16.22 Resistance to vancomycin related antibiotics
CPT/HCPCS: 99284 ×2; 96374; 96375; 85025; 80048; J2405; J3370; J1170; J7050

== ENCOUNTER 2017-12-27 10:59 | Emergency (ER) | payer MEDICAID ==
--- NOTE | 2017-12-27 11:18 | Emergency Department Record ---
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 Pt is right hand dominate and injury to left forearm. Seen following injury at [facility] ER in [place]. Treating with local care and [place] pain meds. Concern today is for continued pain. No local redness or warmth, no drainage. Has been camping over the weekend. Able to fully move shoulder and wrist without pain. No hand pain. No DM. Tetanus is up to date per patient. MD Complaint: Extremity pain Onset/Timin -: Days(s) Location: Left, Arm History of Same: No Radiation: None Severity scale (1-10): 8 Quality: Aching, Burning Consistency: Constant Improves with: Rest Associated Symptoms: Denies other symptoms - Related Data Home Medications Medication Instructions Recorded Confirmed Last Taken Hydrocodone/Acetaminophen [[place] 1 each PO TID PRN 12/27/17 12/27/17 2 Days Ago 5-325 Tablet] ~12/25/17 Allergies Allergy/AdvReac Type Severity Reaction Status Date / Time No Known Drug Allergies Allergy Verified 12/27/17 11:07 Travel Screening - Travel/Exposure Within Last 30 Days Have you traveled within the last 30 days?: No - Travel/Exposure Within Last Year Have you traveled outside the [place] in the last year?: No - Additonal Travel Details Have you been exposed to anyone with a communicable illness?: No - Travel Symptoms Symptom Screening: None Review of Systems Reviewed: No additional complaints except as noted below Constitutional: Denies: Chills, Fever Eyes: Denies: Eye pain ENT: Denies: Congestion, Ear pain Respiratory: Denies: Cough Cardiovascular: Denies: Chest pain Endocrine: Denies: Fatigue Gastrointestinal: Denies: Abdominal pain Musculoskeletal: Reports: As per HPI Skin: Reports: As per HPI Neurological: Denies: Abnormal gait, Tingling, Weakness Past Medical History - SOCIAL HISTORY Smoking Status: Heavy tobacco smoker (>10/day) Alcohol Use: None Drug Use: None - RESPIRATORY Hx Respiratory Disorders: No - CARDIOVASCULAR Hx Cardio Disorders: No - NEURO Hx Neuro Disorders: No - GI Hx GI Disorders: No - Hx Genitourinary Disorders: No - ENDOCRINE Hx Endocrine Disorders: No - MUSCULOSKELETAL Hx Musculoskeletal Disorders: No - PSYCH Hx Psych Problems: No - HEMATOLOGY/ONCOLOGY Hx Hematology/Oncology Disorders: Yes Hx Anemia: Yes (Had hysterectomy due to bleeding) Family Medical History Any Significant Family History?: Yes Hx HTN: Father Physical Exam - General General Appearance: Alert, Oriented x3, Cooperative Limitations: No limitations - Head Head exam: Atraumatic - Eye Eye exam: Normal appearance - ENT Nasal Exam: Normal inspection - Neck Neck exam: Normal inspection - Respiratory Respiratory exam: Normal lung sounds bilaterally. negative: Rhonchi, Wheezes - Cardiovascular Cardiovascular Exam: Regular rate, Normal rhythm Peripheral Pulses: 2+: Radial (R), Radial (L) - GI/Abdominal GI/Abdominal exam: Soft. negative: Rebound, Tenderness - Rectal Rectal exam: Deferred - exam: Deferred - Extremities Extremities exam: Full ROM, Normal capillary refill, Tenderness. negative: Joint swelling Image of Full Body: 1 - volar forearm with linear area of injury, local abrasion/contusion. In anticub area healing wound without discharge or drainage. - Neurological Neurological exam: Alert, Normal gait, Oriented X3 - Psychiatric Psychiatric exam: Normal affect, Normal mood. negative: Anxious, Depressed - Skin Skin exam: Other (as per extremity exam of volar left forearm) Course Vital Signs 12/27/17 11:01 Temperature 97.7 F Pulse Rate 85 Respiratory 18 Rate Blood Pressure 108/75 Pulse Ox 99 Medical Decision Making - Management Options MDM Management: No Additional Work-up Planned - Data Complexity MDM Data: X-Ray Ordered and/or Reviewed, Independent Visualization of Image, Tracing, or Specimen - Radiology Data Radiology results: Image reviewed -: Radiology Exam Interpreted by Myself No free soft tissue air - Medical Decision Making Home with continued local care with ice and rest. Continue Motrin 800mg TID and use pain meds only at bedtime. REST arm! Disposition Disposition: Discharge Clinical Impression: Injury of forearm, left Qualifiers: Encounter type: initial encounter Qualified Code(s): S59.912A - Unspecified injury of left forearm, initial encounter Contusion of left elbow and forearm Qualifiers: Encounter type: initial encounter Qualified Code(s): S50.12XA - Contusion of left forearm, initial encounter Abrasion of left forearm Qualifiers: Encounter type: initial encounter Qualified Code(s): S50.812A - Abrasion of left forearm, initial encounter Disposition: Home, Self-Care Condition: (1) Good Instructions: Contusion in Adults (ED), Abrasion (ED) Additional Instructions: Apply cool compress to the area as needed for pain and swelling, 20 minutes on and 20 minutes off. Watch for signs of infection such as redness, warmth, or drainage from area. Return to the ER as needed for any concerns. Forms: Patient Portal Access Quality - Quality Measures Quality Measures: N/A - Blood Pressure Screening Does Patient Have Any of the Following: No Blood Pressure Classification: Normal BP Reading Systolic Measurement: 108 Diastolic Measurement: 75 Screening for High Blood Pressure: < Normal BP, F/U Not Required > [G8783]
--- NOTE | 2017-12-28 13:42 | RADIOLOGY REPORT ---
EXAM: LEFT HUMERUS HISTORY: INJURY. TECHNIQUE: Two views of the left humerus were performed. FINDINGS: No evidence of fracture or dislocation. No lytic or blastic lesion. IMPRESSION: NEGATIVE LEFT HUMERUS EXAMINATION. JOB [facility]BER: [id number] [facility]
--- NOTE | 2017-12-28 13:55 | RADIOLOGY REPORT ---
EXAM: LEFT FOREARM HISTORY: INJURY. TECHNIQUE: Two views of the left forearm were performed. FINDINGS: No evidence of fracture or dislocation. No lytic or blastic lesion. IMPRESSION: NEGATIVE LEFT FOREARM EXAMINATION. [facility]BER: [id number] [facility]
== END 2017-12-27 12:25 | disposition home or self-care (01) ==
LOC: ER 10:59
DX: S50.12XA Contusion of left forearm, initial encounter (principal); S50.812A Abrasion of left forearm, initial encounter; X50.0XXA Overexertion from strenuous movement or load, initial encounter; Y93.H9 Activity, other involving exterior property and land maintenance, building and construction; Y92.009 Unspecified place in unspecified non-institutional (private) residence as the place of occurrence of the external cause; F17.210 Nicotine dependence, cigarettes, uncomplicated
CPT/HCPCS: 99283

== ENCOUNTER 2018-10-18 13:33 | Emergency (ER) | payer MEDICAID ==
[2018-10-18] MEDS ORDERED: 0.9 % SODIUM CHLORIDE 1,000 ML BAG IV ONE (13:50)
[2018-10-18] MEDS ORDERED: METOCLOPRAMIDE HCL 10 MG/2 ML VIAL IVP ONE (13:55)
[2018-10-18] MEDS ORDERED: DIPHENHYDRAMINE HCL 50 MG/ML VIAL IVP ONE (13:55)
[2018-10-18] MEDS ORDERED: ACETAMINOPHEN 1,000 MG/100 ML BTL IVPB ONE (13:56)
--- NOTE | 2018-10-18 13:59 | Emergency Department Record ---
History of Present Illness - General Chief Complaint: Headache Migraine Stated Complaint: MIGRAINE Time Seen by Provider: 10/18/18 13:49 Source: Patient Mode of Arrival: Ambulatory Limitations: No limitations - History of Present Illness Initial Comments: 38 yo female presents with a headache for two weeks straight. She has associated nausea, vomiting, and light sensitivity. No trauma or fevers. He has had headaches in the past. She was worked up in the last 2-[address] and MRI. No specific findings on prior studies. She called her PCP but no appointments available to be seen timely. No vision changes. The headache is bi-temporal and frontal. It is an ache. No vision changes. No weakness, numbness or tingling. She bought Exedrin Migraine today without relief. In June she was seen at [facility] for daily headaches followed by left side numbness and tingling feeling heavy. She did not followup this with her PCP on her visit or Neurology as noted a referred with neurology was made during that visit. Chronic daily headaches were noted. 2014 and 2015 PCP notes indicate work up for worsening persistent headaches. The states she has been under a lot of stress and anxiety as well. No family history of neurologic disease, AVM, or aneurysms. 07/02/[address] Angiogram Normal with noted 2.5mm slices (not 1mm slices) 07/02/[address] WO Normal ([facility]) 10/19/15 Brain MRI WO Normal ([facility]) 01/02/[address] W Negative ([facility]) 07/11/[address] WO Negative ([facility]) Complaint: Headache, "Migraine", Other Onset/Timin -: Week(s) Onset Description: Gradual Location: Frontal Severity: Moderate Quality: Aching Consistency: Constant Improves With: Nothing Worsens With: Light Context: Other Associated Symptoms: Nausea Treatments Prior to Arrival: None - Symptoms of Stroke Symptom Onset Unknown: Yes - Related Data Home Medications Medication Instructions Recorded Confirmed Last Taken Hydroxyzine Pamoate [Vistaril] 25 mg PO ASDIR 10/18/18 10/18/18 Unknown Previous Rx's Medication Instructions Recorded Ondansetron [Zofran Odt] 4 mg PO Q8H #15 tab.rapdis 10/18/18 Allergies Allergy/AdvReac Type Severity Reaction Status Date / Time No Known Drug Allergies Allergy Unverified 10/18/18 13:02 Travel Screening - Travel/Exposure Within Last 30 Days Have you traveled within the last 30 days?: No Review of Systems Constitutional: Denies: Chills, Fever, Malaise, Night sweats, Weakness Eyes: Reports: Photophobia. Denies: Eye discharge, Eye pain, Vision change ENT: Denies: Congestion, Throat pain Respiratory: Denies: Cough, Dyspnea, Hemoptysis, Stridor, Wheezes Cardiovascular: Denies: Chest pain, Palpitations, Syncope Endocrine: Reports: Fatigue Gastrointestinal: Reports: Nausea, Vomiting. Denies: Abdominal pain, Diarrhea Genitourinary: Denies: Dysuria Musculoskeletal: Denies: Arthralgia, Back pain, Myalgia Skin: Denies: Bruising, Change in color, Rash Neurological: Reports: Headache. Denies: Abnormal gait, Confusion, Numbness, Paresthesias, Seizure, Tingling, Tremors, Weakness Psychiatric: Denies: Anxiety Hematological/Lymphatic: Denies: Easy bleeding, Easy bruising Past Medical History - SOCIAL HISTORY Smoking Status: Heavy tobacco smoker (>10/day) - RESPIRATORY Hx Respiratory Disorders: No - CARDIOVASCULAR Hx Cardio Disorders: No - NEURO Hx Neuro Disorders: No - GI Hx GI Disorders: No - Hx Genitourinary Disorders: No - ENDOCRINE Hx Endocrine Disorders: No - MUSCULOSKELETAL Hx Musculoskeletal Disorders: No - PSYCH Hx Psych Problems: No - HEMATOLOGY/ONCOLOGY Hx Hematology/Oncology Disorders: Yes Hx Anemia: Yes (Had hysterectomy due to bleeding) Family Medical History Any Significant Family History?: Yes Hx HTN: Father Physical Exam - General General Appearance: Alert, Oriented x3, Cooperative, No acute distress Limitations: No limitations - Head Head exam: Atraumatic, Normocephalic, Normal inspection - Eye Eye exam: Normal appearance, PERRL, EOMI. negative: Conjunctival injection, Nystagmus, Scleral icterus - ENT ENT exam: Normal exam, Mucous membranes moist, Normal orophraynx Ear exam: Normal external inspection Nasal Exam: Normal inspection Mouth exam: Normal external inspection - Neck Neck exam: Normal inspection, Full ROM. negative: Lymphadenopathy, Meningismus , Tenderness - Respiratory Respiratory exam: Normal lung sounds bilaterally. negative: Respiratory distress - Cardiovascular Cardiovascular Exam: Regular rate, Normal rhythm, Normal heart sounds - GI/Abdominal GI/Abdominal exam: Soft. negative: Tenderness - Rectal Rectal exam: Deferred - exam: Deferred - Extremities Extremities exam: Normal inspection, Full ROM, Normal capillary refill. negative: Tenderness - Back Back exam: Denies: CVA tenderness (R), CVA tenderness (L) - Neurological Neurological exam: Alert, CN II-XII intact, Oriented X3, Reflexes normal. negative: Abnormal gait, Altered, Motor sensory deficit - Psychiatric Psychiatric exam: Normal affect, Normal mood. negative: Agitated, Anxious - Skin Skin exam: Dry, Intact, Normal color, Warm Course Vital Signs 10/18/18 13:44 Temperature 98.1 F Pulse Rate 75 Respiratory 18 Rate Blood Pressure 107/75 Pulse Ox 100 - Reevaluation(s) Reevaluation #1: The EMR and [facility] was reviewed for the prior work ups for the headaches See the HPI for some of the summary The labs results were reviewed There are no acute significant abnormalities of the CBC There are no acute significant abnormalities of the CMP 10/18/18 14:37 10/18/18 14:[address] Roman regarding the ED visit, prior visits for headaches, [facility] ED visit, prior HCTs, CTA, and MRIs. He was unaware of the [facility] ED visit and referral for neurology that did not occur He will facilitate a neurology referral for her history of recurrent headache over the last several years He will see her as scheduled this week in the office as well 10/18/18 15:06 The HCT scan is negative for any acute process. Medical Decision Making - Lab Data Result diagrams: 10/18/18 14:00 10/18/18 14:00 Disposition Disposition: Discharge Clinical Impression: Headache Qualifiers: Headache type: unspecified Headache chronicity pattern: unspecified pattern Intractability: not intractable Qualified Code(s): R51 - Headache Disposition: Home, Self-Care Condition: (1) Good Instructions: Acute Headache (ED) Additional Instructions: Follow up on the 3rd as scheduled with Dr Roman Return to the ER for a recheck if worse, any new concerns or questions Take the prescriptions provided as directed Review this ER visit and the tests performed with your family doctor Prescriptions: Ondansetron [Zofran Odt] 4 mg PO Q8H #15 tab.rapdis Forms: Patient Portal Access Time of Disposition: 16:03 Quality - Quality Measures Quality Measures: N/A - Blood Pressure Screening Does Patient Have Any of the Following: No Blood Pressure Classification: Normal BP Reading Systolic Measurement: 107 Diastolic Measurement: 67 Screening for High Blood Pressure: < Normal BP, F/U Not Required > [[id number]]
[2018-10-18 14:06] LABS: BASO % 0.6 % (0-6); EOS % 7.3 % (0-6); GRAN % 57.1 % (47-80); HEMATOCRIT 42.1 % (35.0-47.0); HEMOGLOBIN 14.1 gm/dl (11.6-16.0); LYMPH % 27.4 % (16-45); MEAN CELL VOLUME 88.6 fl (81-97); MEAN CORPUSCULAR HEMOGLOBIN 29.7 pg (27-33); MEAN CORPUSCULAR HGB CONC 33.5 g/dl (32-36); MEAN PLATELET VOLUME 10.6 fl (7.4-10.4); MONO % 7.6 % (0-9); PLATELET COUNT 209 K/uL (130-400); RED BLOOD COUNT 4.75 M/uL (3.80-5.40); RED CELL DISTRIBUTION WIDTH 13.6 % (11.5-14.5); WHITE BLOOD COUNT W/O DIFF 7.1 K/uL (4.2-12.2)
[2018-10-18 14:15] LABS: BLOOD UREA NITROGEN 14 mg/dL (6-20)
[2018-10-18 14:16] LABS: BILIRUBIN,TOTAL < 0.20 mg/dL (0.2-1.0); CREATININE 0.9 mg/dL (0.5-0.9); EST GLOMERULAR FILTRATION RATE > 60 mL/min; TOTAL PROTEIN 7.5 g/dL (6.6-8.7)
[2018-10-18 14:18] LABS: GLUCOSE,RANDOM 103 mg/dL (74-109)
[2018-10-18 14:21] LABS: ALB/GLOB RATIO 1.4 (1.1-1.8); ALBUMIN 4.4 g/dL (4.0-5.0); ALKALINE PHOSPHATASE 80 U/L (35-104); ALT/SGPT 10 U/L (<33); AST/SGOT 18 U/L (10.0-35.0)
[2018-10-18] MEDS ORDERED: KETOROLAC 30 MG/ML VIAL IVP ONE (15:36)
--- NOTE | 2018-10-20 12:51 | CT SCAN REPORT ---
EXAM: NONCONTRAST CT OF THE BRAIN HISTORY: HEADACHE FOR TWO WEEKS. TECHNIQUE: Noncontrast CT of the brain was obtained. Comparison: MR of the brain 10/19/[address] of the brain 07/11/14. FINDINGS: No midline shift, mass effect, or abnormal intra or extraaxial fluid collection. No cerebral edema, focal mass or intracranial hemorrhage detected. The ventricle sizes are within normal limits. The basal cisterns are not effaced. No displaced calvarial fracture. The paranasal sinuses are not significantly opacified. IMPRESSION: NO ACUTE INTRACRANIAL FINDINGS. JOB NUMBER: [id number] MTDD
== END 2018-10-18 16:25 | disposition home or self-care (01) ==
LOC: ER 13:33
DX: R51 Headache (principal); R11.2 Nausea with vomiting, unspecified; H53.149 Visual discomfort, unspecified; F17.210 Nicotine dependence, cigarettes, uncomplicated
CPT/HCPCS: 99284 ×2; 96365; 96375; 85025; 80053; 70450; J1885; J1200; J2765; J7030